=== PATIENT | female | born 1960 | race African-American/Black ===

== ENCOUNTER 2017-06-26 08:40 | Emergency (ER) | payer OTHER ==
[2017-06-26 08:47] VITALS: TEMP 97.4; BMI 23.5
[2017-06-26] MEDS ORDERED: MAG HYDROX/AL HYDROX/SIMETH 355 ML ORAL.SUSP PO ONE (09:10)
[2017-06-26] MEDS ORDERED: FAMOTIDINE 20 MG/50 ML IVPB 20 MG in PREMIX 50 IVPB ONE (09:10)
--- NOTE | 2017-06-26 09:10 | PDOC ---
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 Pain is left lower quadrant, left flank, and epigastric. She reports feeling chest pain today with some shortness of breath. Chest pain is worse on exertion and relieved with rest. She has associated nausea and constipation. She also has diffuse itching without rash. She has been having this pain for several weeks, but it became worse on 06/24, prompting her to seek evaluation at [facility]. There she was told that she has GERD, but she did not undergo any imaging at that time. She was discharged on pantoprazole, which she has been taking, but pain is worsening. Vital signs on arrival are notable for blood pressure 172/85. REVIEW OF SYSTEMS: GENERAL/CONSTITUTIONAL: No fever or chills. No weakness. No weight change. HEAD, EYES, EARS, NOSE AND THROAT: No change in vision. No ear pain or discharge. No sore throat. CARDIOVASCULAR: Chest pain x 2 days, worse on exertion and relieved with rest. RESPIRATORY: Dry cough, wheezing and shortness of breath, not relieved with use of albuterol nebulizers at home. Has been using home O2 that she had "left over " after being discharged on it after an admission for PNA several years ago. GASTROINTESTINAL: Left-sided abdominal, left flank, and epigastric pain, worsening over several weeks. Nausea, constipation. GENITOURINARY: No dysuria, frequency, or change in urination. MUSCULOSKELETAL: No joint or muscle swelling or pain. No neck or back pain. SKIN: No rash or easy bruising. NEUROLOGIC: No headache, vertigo, loss of consciousness, or loss of sensation. PSYCHIATRIC: No depression or anxiety. ENDOCRINE: No increased thirst. No abnormal weight change. HEMATOLOGIC/LYMPHATIC: No anemia, easy bleeding, or history of blood clots. ALLERGIC/IMMUNOLOGIC: No hives or skin allergy. No latex allergy. PHYSICAL EXAM: GENERAL: The patient is awake, alert, and fully oriented, in no acute distress. HEAD: Normal with no signs of trauma. ENT: Pupils equal, round and reactive to light, extraocular movements intact, sclera anicteric, conjunctiva clear. Neck supple. LUNGS: Clear to auscultation bilaterally. Normal excursion. No respiratory distress or use of accessory muscles. CV: RRR, S1/S2, no MRG. Cap refill < 2 sec. ABDOMEN: Soft, non-distended, non-tender. EXTREMITIES: Normal range of motion, no edema. NEUROLOGICAL: Normal speech, normal gait. CN II-XII grossly intact. PSYCH: Normal mood, normal affect. SKIN: Warm, dry, normal turgor, no rashes or lesions noted. Past History - Past Medical History Allergies/Adverse Reactions: Allergies Allergy/AdvReac Type Severity Reaction Status Date / Time No Known Allergies Allergy Verified 06/26/17 08:47 Home Medications: Ambulatory Orders Amlodipine Besylate 10 mg PO DAILY 04/09/16 Losartan Potassium [Cozaar -] 100 mg PO DAILY 04/09/16 Metoprolol Succinate [Toprol Xl] 100 mg PO BID 04/09/16 Albuterol Sulfate Inhaler - [Ventolin Hfa Inhaler -] 1 - 2 inh PO QID 06/26/17 Ciprofloxacin [Cipro -] 500 mg PO Q12H #14 tablet 06/26/17 Famotidine [Pepcid -] 20 mg PO DAILY #30 tablet 06/26/17 Metronidazole [Flagyl -] 500 mg PO Q8H #21 tablet 06/26/17 Prednisone [Deltasone -] 5 mg PO BID 06/26/17 COPD: Yes Diabetes: No HTN: Yes Psychiatric Problems: Yes Seizures: Yes (on dilantin, last seizure 2 yrs ago) - Reproductive History Therapeutic (s) & number: No - Immunization History Immunization Up to Date: Yes - Suicide/Smoking/Psychosocial Hx Smoking Status: Yes Smoking History: Former smoker Have you smoked in the past 12 months: Yes Number of Cigarettes Smoked Daily: 4 If you are a former smoker, when did you quit?: 2 months Information on smoking cessation initiated: No 'Breaking Loose' booklet given: 09/01/13 Hx Alcohol Use: No Drug/Substance Use Hx: No (past) Substance Use Type: Heroin Hx Substance Use Treatment: Yes *Physical Exam - Vital Signs Last Vital Signs Temp Pulse Resp BP Pulse Ox 97.4 F L 64 18 172/85 100 06/26/17 08:43 06/26/17 08:43 06/26/17 08:43 06/26/17 08:43 06/26/17 08:43 ED Treatment Course - LABORATORY CBC & Chemistry Diagram: 06/26/17 10:15 06/26/17 10:15 - RADIOLOGY Radiology Studies Ordered: Category Date Time Status CHEST PA & LAT [RAD] Stat Radiology 06/26/17 09:09 Ordered Medical Decision Making - Medical Decision Making 06/26/17 10:30 A/P: 56-year-old female with multiple complaints including abdominal pain, chest pain, shortness of breath. 1. EKG 2. Abdominal and cardiac labs 3. CTAP with PO/IV contrast 4. Trial of Pepcid and Maalox for burning epigastric pain/chest pain 5. Re-assess 06/26/17 11:37 Cr 1.3 K 5.2 UA with 14 WBCs 06/26/17 14:16 Patient reports pain/discomfort and itching are resolved. 06/26/17 15:19 CTAP reviewed: mild centrilobular emphysema, previously known to patient. Persistent dilatation of the common bile duct measuring 8mm, MRCP previously recommended. Questionable mild acute diverticulitis. Patient is feeling well and is eager to be discharged. Will treat ? diverticulitis with Cipro/Flagyl, ?UTI with Cipro, epigastric pain with Pepcid. Patient has appointment with GI on 07/06. Return precautions reviewed. *DC/Admit/Observation/Transfer Diagnosis at time of Disposition: Diverticulitis, Epigastric pain UTI (urinary tract infection) Qualifiers: Urinary tract infection type: acute cystitis Hematuria presence: without hematuria Qualified Code(s): N30.00 - Acute cystitis without hematuria - Discharge Dispostion Disposition: HOME Condition at time of disposition: Stable Admit: No - Prescriptions Prescriptions: Ciprofloxacin [Cipro -] 500 mg PO Q12H #14 tablet Famotidine [Pepcid -] 20 mg PO DAILY #30 tablet Metronidazole [Flagyl -] 500 mg PO Q8H #21 tablet - Referrals Referrals: Joe Gallagher MD [Primary Care Provider] - Jeromy Mendez MD [Staff Physician] - 07/06/17 - Patient Instructions Printed Discharge Instructions: DI for Diverticulitis Additional Instructions: -follow a clear liquid diet today -slowly advance to plain foods like bananas, rice, apples, toast -take ciprofloxacin/flagyl as prescribed - absolutely no alcohol or heavy exercise with these medications -take pepcid as prescribed for stomach discomfort -follow up with Dr. Mendez on 07/06 as scheduled -return here for any new or concerning symptoms, especially chest pain or shortness of breath - Post Discharge Activity
[2017-06-26] MEDS ORDERED: ONDANSETRON 4 MG/2 ML VIAL IVPUSH ONE (09:21)
[2017-06-26] MEDS ORDERED: FAMOTIDINE 20 MG/50 ML IVPB 20 MG/50 ML MG IVPB ONE (09:55)
[2017-06-26] MEDS ORDERED: MAG HYDROX/AL HYDROX/SIMETH 30 ML UNIT-DOSE CUP ONE (09:55)
[2017-06-26] MEDS ORDERED: ONDANSETRON 4 MG/2 ML VIAL ONE (09:55)
[2017-06-26 10:42] LABS: BASO % 0.6 % (0-2.0); EOS % 0.6 % (0-4.5); HEMATOCRIT 42.7 % (32.4-45.2); HEMOGLOBIN 13.8 GM/dL (10.7-15.3); LYMPH % 30.8 % (8-40); MCH 31.7 pg (25.7-33.7); MCHC 32.4 g/dl (32.0-36.0); MEAN CELL VOLUME 97.9 fl (80-96); MEAN PLT VOLUME 9.3 fl (7.5-11.1); MONO % 4.3 % (3.8-10.2); NEUT % 63.7 % (42.8-82.8); RBC 4.37 M/mm3 (3.60-5.2); RDW 12.5 % (11.6-15.6); WHITE BLOOD COUNT 7.2 K/mm3 (4.0-10.0)
[2017-06-26 10:45] LABS: URINE APPEARANCE SLCLOUDY; URINE BILIRUBIN NEGATIVE (NEGATIVE); URINE BLOOD NEGATIVE (NEGATIVE); URINE COLOR YELLOW; URINE GLUCOSE (UA) NEGATIVE (NEGATIVE); URINE KETONE TRACE (NEGATIVE); URINE LEUK ESTERASE TRACE (NEGATIVE); URINE NITRITE NEGATIVE (NEGATIVE); URINE PROTEIN NEGATIVE (NEGATIVE)
[2017-06-26 10:54] LABS: EPI CELLS FEW /HPF (FEW); URINE BACTERIA RARE /hpf (NONE SEEN); URINE MUCUS RARE
[2017-06-26 10:55] LABS: INR 1.17 (0.82-1.09); PROTHROMBIN TIME (PATIENT) 13.2 SEC (9.98-11.88)
[2017-06-26 11:01] LABS: ALBUMIN 4.6 g/dl (3.4-5.0); ANION GAP 8 (8-16); BILIRUBIN,TOTAL 0.6 mg/dL (0.2-1.0); BLOOD UREA NITROGEN 18 mg/dL (7-18); CALCIUM 9.4 mg/dL (8.5-10.1); CHLORIDE 105 mmol/L (98-107); CO2 25 mmol/L (21-32); CREATININE 1.3 mg/dL (0.55-1.02); GLUCOSE,RANDOM 94 mg/dL (74-106); LIPASE 146 U/L (73-393); POTASSIUM 5.2 mmol/L (3.5-5.1); SGOT/AST 42 U/L (15-37); SGPT/ALT 35 U/L (12-78); SODIUM 138 mmol/L (136-145); TOT PROT 8.3 g/dl (6.4-8.2)
[2017-06-26 11:02] LABS: ALK PHOS 102 U/L (45-117)
[2017-06-26] MEDS ORDERED: ALBUTEROL SO4 2.5/IPRATROPIUM 0.5 INH SOL 3 ML VIAL.NEB. NEB ONE ×2 (11:36→12:13)
[2017-06-26] MEDS ORDERED: SODIUM CHLORIDE 1,000 ML IV SCH (11:45)
[2017-06-26] MEDS: ALBUTEROL SO4 0.083% IH SOL 2.5 MG/3 ML VIAL.NEB. NEB SCH ×2 (12:10→12:39)
[2017-06-26] MEDS ORDERED: ALBUTEROL SO4 0.083% IH SOL 2.5 MG/3 ML VIAL.NEB. NEB ONE (12:36)
[2017-06-26] MEDS ORDERED: CIPROFLOXACIN 500 MG TABLET (RESTRICTED TO ID) PO ONE (15:18)
[2017-06-26] MEDS ORDERED: metroNIDAZOLE 250 MG TABLET PO ONE (15:19)
[2017-06-26] MEDS ORDERED: LEVOFLOXACIN 750 MG TABLET PO ONE (15:22)
[2017-06-26] MEDS ORDERED: metroNIDAZOLE 250 MG TABLET ONE (15:24)
[2017-06-26] MEDS ORDERED: LEVOFLOXACIN 500 MG TABLET (FP) ONE (15:24)
[2017-06-26] MEDS ORDERED: LEVOFLOXACIN 250 MG TABLET (FP) ONE (15:25)
[2017-06-26 15:34] VITALS: BP 141/88; PULSE 76
== END 2017-06-26 15:34 | disposition home or self-care (01) ==
LOC: JER 08:40
PROC: 3E0337Z Introduction of Electrolytic and Water Balance Substance into Peripheral Vein, Percutaneous Approach (ICD-10-PCS; principal; 2017-06-26)
PROC: 3E0F7GC Introduction of Other Therapeutic Substance into Respiratory Tract, Via Natural or Artificial Opening (ICD-10-PCS; 2017-06-26)
PROC: 3E0F7GC Introduction of Other Therapeutic Substance into Respiratory Tract, Via Natural or Artificial Opening (ICD-10-PCS; 2017-06-26)
DX: K57.92 Diverticulitis of intestine, part unspecified, without perforation or abscess without bleeding (principal); N30.00 Acute cystitis without hematuria; I10 Essential (primary) hypertension; J44.9 Chronic obstructive pulmonary disease, unspecified; F11.20 Opioid dependence, uncomplicated; Z86.69 Personal history of other diseases of the nervous system and sense organs; Z87.891 Personal history of nicotine dependence
CPT/HCPCS: 36415; 71046-TC; 74177-TC; 80053; 81003; 81015; 82550; 82553; 83690; 84484; 85025; 85610; 94640; 96361; 96365; 96375; 99283-25

== ENCOUNTER 2017-06-27 13:42 | Observation (INO) | payer OTHER ==
[2017-06-27 14:21] VITALS: BMI 24.3
[2017-06-27] MEDS ORDERED: ASPIRIN 81 MG CHEWABLE TABLETS PO ONE (14:26)
--- NOTE | 2017-06-27 14:42 | PDOC ---
History of Present Illness - General Chief Complaint: Chest Pain Stated Complaint: CHEST PAIN Time Seen by Provider: 06/27/17 14:26 History Source: Patient Exam Limitations: No Limitations - History of Present Illness Travel History: No Initial Comments: 06/27/17 14:40 56 yr female seen in ER yesterday returns today with abd pain and decreased appetite, chest pain during the night with chills and sweats. Pt states she was discharged from ER yesterday and has been unable to eat or drink without abdominal discomfort, "bloating" states pt. Neg nvd, positive constipation, has lower left sided abd pain. PMHX: IVDA on methadone 30mg daily last dose today COPD , GERD, HTN PMD: Dr.James Gallagher 06/27/17 16:53 06/27/17 16:56 Timing/Duration: reports: constant Past History - Past Medical History Allergies/Adverse Reactions: Allergies Allergy/AdvReac Type Severity Reaction Status Date / Time No Known Allergies Allergy Verified 06/27/17 14:01 Home Medications: Ambulatory Orders Amlodipine Besylate 10 mg PO DAILY 04/09/16 Losartan Potassium [Cozaar -] 100 mg PO DAILY 04/09/16 Metoprolol Succinate [Toprol Xl] 100 mg PO BID 04/09/16 Albuterol Sulfate Inhaler - [Ventolin Hfa Inhaler -] 1 - 2 inh PO QID 06/26/17 Ciprofloxacin [Cipro -] 500 mg PO Q12H #14 tablet 06/26/17 Famotidine [Pepcid -] 20 mg PO DAILY #30 tablet 06/26/17 Metronidazole [Flagyl -] 500 mg PO Q8H #21 tablet 06/26/17 Prednisone [Deltasone -] 5 mg PO BID 06/26/17 COPD: Yes Diabetes: No HTN: Yes Psychiatric Problems: Yes Seizures: Yes (on dilantin, last seizure 2 yrs ago) - Reproductive History Therapeutic (s) & number: No - Immunization History Immunization Up to Date: Yes - Suicide/Smoking/Psychosocial Hx Smoking Status: Yes Smoking History: Former smoker Have you smoked in the past 12 months: Yes Number of Cigarettes Smoked Daily: 4 If you are a former smoker, when did you quit?: 2 months Information on smoking cessation initiated: No 'Breaking Loose' booklet given: 09/01/13 Hx Alcohol Use: No Drug/Substance Use Hx: No (past) Substance Use Type: Heroin Hx Substance Use Treatment: Yes Abd/GI Specific PMHX - Complaint Specific PMHX Colitis: No Diverticulitis: Yes GERD: Yes Hepatitis: No Irritable Bowel Synd (IBS): No Pancreatitis: No GI Ulcer Disease: No *Physical Exam - Vital Signs Last Vital Signs Temp Pulse Resp BP Pulse Ox 98.2 F 87 16 185/78 100 06/27/17 13:57 06/27/17 13:57 06/27/17 13:57 06/27/17 13:57 06/27/17 13:57 - Physical Exam General Appearance: Yes: Nourished, Appropriately Dressed HEENT: positive: EOMI, JULES, Normal ENT Inspection, TMs Normal, Pharynx Normal Neck: positive: Supple. negative: Tender, Lymphadenopathy (R), Lymphadenopathy (L) Respiratory/Chest: positive: Lungs Clear, Normal Breath Sounds Cardiovascular: positive: Regular Rhythm, Regular Rate, S1, S2. negative: Murmur, Bradycardia, Gallop/S3, Gallop/S4 Gastrointestinal/Abdominal: positive: Normal Bowel Sounds, Soft. negative: Tender Musculoskeletal: positive: Normal Inspection Extremity: positive: Normal Capillary Refill, Normal Inspection, Normal Range of Motion. negative: Tender Integumentary: positive: Normal Color, Dry, Warm Neurologic: positive: nutrition representative II-XII NML intact, Fully Oriented, Alert, Normal Mood/ Affect, Normal Response, Motor Strength 5/5 Heart Score/ECG Review - History History: Slightly suspicious - Risk Factors Risk Factors Heart Score: Yes Hx Hypertension, Yes Smoking History Based on the list above the patient has:: 1-2 risk factors - ECG Intrepretation Rhythm: Regular Rhythm - Wolbach Wolbach: Normal ED Treatment Course - LABORATORY CBC & Chemistry Diagram: 06/27/17 15:10 06/27/17 15:10 - RADIOLOGY Radiology Studies Ordered: Category Date Time Status CHEST PA & LAT [RAD] Stat Radiology 06/27/17 14:26 Ordered Medical Decision Making - Medical Decision Making 06/27/17 14:43 cc: abd pain with decreased appetite, decreased po intake, chest pain last night during the night with diaphoresis seen in this ER yesterday diagnosed with diverticulitus placed on flagyl and cipro pt not feeling better has intermittent chest and abd pain no fever will re-check labs, IVF pepcid, maalox possible OBS for chest pain, failure on oral antibitoics, continuing abd pain case discussed with 06/27/17 16:25 pt is taking small sips of water stating after she drinks she feels "full and has shaking in her knees" will get xray to r/o SBO pt to go to US for pelvic ultrasound labs resulted 06/27/17 16:56 06/27/17 17:07 call to 06/27/17 17:15 discussed with and agrees to admit for diverticulitus, IVAB NPO *DC/Admit/Observation/Transfer Diagnosis at time of Disposition: Diverticulitis Abdominal pain Qualifiers: Abdominal location: left lower quadrant Qualified Code(s): R10.32 - Left lower quadrant pain - Discharge Dispostion Condition at time of disposition: Fair Admit: Yes - Referrals - Patient Instructions - Post Discharge Activity
[2017-06-27] MEDS ORDERED: MAG HYDROX/AL HYDROX/SIMETH 30 ML UNIT-DOSE CUP PO ONE (14:44)
[2017-06-27] MEDS ORDERED: FAMOTIDINE 20 MG/50 ML IVPB 20 MG/50 ML MG IVPB ONE ×2 (14:55→23:23)
[2017-06-27] MEDS ORDERED: MAG HYDROX/AL HYDROX/SIMETH 30 ML UNIT-DOSE CUP ONE (14:55)
--- NOTE | 2017-06-27 15:01 | PDOC ---
*Physical Exam - Vital Signs Last Vital Signs Temp Pulse Resp BP Pulse Ox 98.2 F 87 16 185/78 100 06/27/17 13:57 06/27/17 13:57 06/27/17 13:57 06/27/17 13:57 06/27/17 13:57 Medical Decision Making - Medical Decision Making 06/27/17 15:00 Pt seen by the Advanced Practice Provider under my direct supervision Ancillary studies reviewed I agree with plan as outlined by the Advanced Practice Provider BILL Clark *DC/Admit/Observation/Transfer - Referrals Referrals: Joe Gallagher MD [Primary Care Provider] - - Patient Instructions - Post Discharge Activity
[2017-06-27] MEDS ORDERED: PANTOPRAZOLE 20 MG TABLET (FP) PO ONE (15:13)
[2017-06-27] MEDS: SODIUM CHLORIDE 1,000 ML IV STA ×2 (15:17→17:16)
[2017-06-27 15:19] LABS: BASO % 0.8 % (0-2.0); EOS % 0.8 % (0-4.5); HEMATOCRIT 37.4 % (32.4-45.2); HEMOGLOBIN 12.5 GM/dL (10.7-15.3); LYMPH % 35.3 % (8-40); MCH 32.3 pg (25.7-33.7); MCHC 33.3 g/dl (32.0-36.0); MEAN CELL VOLUME 96.9 fl (80-96); MEAN PLT VOLUME 7.4 fl (7.5-11.1); MONO % 7.7 % (3.8-10.2); NEUT % 55.4 % (42.8-82.8); PLATELET COUNT 217 K/MM3 (134-434); RBC 3.86 M/mm3 (3.60-5.2); RDW 12.4 % (11.6-15.6); WHITE BLOOD COUNT 4.6 K/mm3 (4.0-10.0)
[2017-06-27] MEDS ORDERED: PANTOPRAZOLE 40 MG TABLET (FP) ONE (15:21)
[2017-06-27 15:37] LABS: URINE APPEARANCE CLEAR; URINE BILIRUBIN NEGATIVE (NEGATIVE); URINE BLOOD NEGATIVE (NEGATIVE); URINE COLOR LTYELLOW; URINE GLUCOSE (UA) NEGATIVE (NEGATIVE); URINE KETONE NEGATIVE (NEGATIVE); URINE LEUK ESTERASE TRACE (NEGATIVE); URINE NITRITE NEGATIVE (NEGATIVE); URINE PROTEIN NEGATIVE (NEGATIVE); URINE UROBILINOGEN NEGATIVE mg/dL (0.2-1.0)
[2017-06-27 15:54] LABS: ALBUMIN 3.9 g/dl (3.4-5.0); ANION GAP 9 (8-16); BLOOD UREA NITROGEN 12 mg/dL (7-18); CALCIUM 9.3 mg/dL (8.5-10.1); CHLORIDE 103 mmol/L (98-107); CO2 28 mmol/L (21-32); CREATININE 1.3 mg/dL (0.55-1.02); GLUCOSE,RANDOM 113 mg/dL (74-106); MAGNESIUM 2.1 mg/dL (1.8-2.4); POTASSIUM 4.1 mmol/L (3.5-5.1); SGOT/AST 21 U/L (15-37); SGPT/ALT 30 U/L (12-78); SODIUM 140 mmol/L (136-145); TOT PROT 7.3 g/dl (6.4-8.2)
[2017-06-27 15:57] LABS: ALK PHOS 88 U/L (45-117); BILIRUBIN,TOTAL 0.3 mg/dL (0.2-1.0)
[2017-06-27] MEDS ORDERED: CEFTRIAXONE 1 GM in DEXTROSE 5%-WATER - 50 ML IVPB ONE (17:12)
[2017-06-27] MEDS ORDERED: METRONIDAZOLE 500 MG PREMIXED 500 MG/100 ML MG IVPB ONE ×2 (17:13→18:50)
[2017-06-27 17:33] LABS: EPI CELLS RARE /HPF (FEW); URINE MUCUS RARE
[2017-06-27] MEDS ORDERED: CEFTRIAXONE 1 GM/50 ML BAG ONE ×2 (18:50→19:21)
[2017-06-27] MEDS ORDERED: FAMOTIDINE IV 20 MG/12 ML VIAL IVPUSH SCH (22:00)
[2017-06-27] MEDS ORDERED: SODIUM CHLORIDE 0.9% 1000 ML INFUS.BAG IV ONE (23:21)
[2017-06-28] MEDS ORDERED: ALBUTEROL SO4 2.5/IPRATROPIUM 0.5 INH SOL 3 ML VIAL.NEB. NEB PRN (01:46)
--- NOTE | 2017-06-28 01:59 | PN ---
Progress Note, Physician - Current Medication List Current Medications: Active Medications Albuterol/Ipratropium (Duoneb -) 1 amp NEB Q6H PRN PRN Reason: SHORTNESS OF BREATH Amlodipine Besylate (Norvasc -) 10 mg PO DAILY [facility] Heparin Sodium (Porcine) (Heparin -) 5,000 unit SQ BID [facility] Famotidine (Pepcid 20 Mg/12 Ml Push) 20 mg in 12 mls @ 144 mls/hr IVPUSH BID [facility] Last Admin: 06/27/17 23:27 Dose: 144 mls/hr Dextrose/Sodium Chloride (D5-1/2ns -) 1,000 mls @ 75 mls/hr IV ASDIR [facility] Metronidazole (Flagyl 500mg Premixed Ivpb -) 500 mg in 100 mls @ 100 mls/hr IVPB Q8H-IV [facility] Levofloxacin (Levaquin 500 Mg Premixed Ivpb -) 500 mg in 100 mls @ 100 mls/hr IVPB DAILY [facility] Losartan Potassium (Cozaar -) 100 mg PO DAILY [facility] Metoprolol Succinate (Toprol Xl -) 100 mg PO BID [facility] Non-Formulary Medication (Famotidine [Pepcid -]) 20 mg PO DAILY [facility] - Objective Vital Signs: Vital Signs Temperature 98.2 F 06/27/17 13:57 Pulse Rate 87 06/27/17 13:57 Respiratory Rate 16 06/27/17 13:57 Blood Pressure 185/78 06/27/17 13:57 O2 Sat by Pulse Oximetry (%) 100 06/27/17 13:57 Labs: CBC, BMP 06/27/17 15:10 06/27/17 15:10
[2017-06-28] MEDS ORDERED: METRONIDAZOLE 500 MG PREMIXED 500 MG/100 ML MG IVPB ONE (02:45)
[2017-06-28] MEDS: DEXTROSE 5%-0.45% SALINE 1,000 ML IV SCH ×2 (02:49→18:49)
[2017-06-28] MEDS: METRONIDAZOLE 500 MG PREMIXED 500 MG/100 ML MG IVPB SCH ×3 (02:49→18:52)
[2017-06-28 08:30] LABS: BASO % 0.5 % (0-2.0); EOS % 0.5 % (0-4.5); HEMATOCRIT 37.2 % (32.4-45.2); HEMOGLOBIN 12.1 GM/dL (10.7-15.3); LYMPH % 22.1 % (8-40); MCH 31.7 pg (25.7-33.7); MCHC 32.6 g/dl (32.0-36.0); MEAN CELL VOLUME 97.2 fl (80-96); MEAN PLT VOLUME 7.3 fl (7.5-11.1); MONO % 7.1 % (3.8-10.2); NEUT % 69.8 % (42.8-82.8); PLATELET COUNT 190 K/MM3 (134-434); RBC 3.83 M/mm3 (3.60-5.2); RDW 12.4 % (11.6-15.6); WHITE BLOOD COUNT 3.7 K/mm3 (4.0-10.0)
[2017-06-28 08:35] LABS: CHLORIDE 106 mmol/L (98-107); POTASSIUM 3.5 mmol/L (3.5-5.1); SODIUM 140 mmol/L (136-145)
[2017-06-28 08:43] LABS: ALBUMIN 3.7 g/dl (3.4-5.0); ALK PHOS 81 U/L (45-117); ANION GAP 7 (8-16); BILIRUBIN,TOTAL 0.5 mg/dL (0.2-1.0); BLOOD UREA NITROGEN 7 mg/dL (7-18); CALCIUM 8.4 mg/dL (8.5-10.1); CO2 27 mmol/L (21-32); CREATININE 0.9 mg/dL (0.55-1.02); GLUCOSE,RANDOM 106 mg/dL (74-106); SGOT/AST 22 U/L (15-37); SGPT/ALT 28 U/L (12-78); TOT PROT 6.9 g/dl (6.4-8.2)
[2017-06-28] MEDS ORDERED: amLODIPine BESYLATE 10 MG TABLET (FP) PO SCH (10:00)
[2017-06-28] MEDS ORDERED: LOSARTAN POTASSIUM 100 MG TABLET PO SCH (10:00)
[2017-06-28] MEDS ORDERED: LEVOFLOXACIN 500 MG IVPB 500 MG/100 ML BAG IVPB SCH (10:00)
[2017-06-28] MEDS ORDERED: RANITIDINE HCL 150 MG TABLET (FP) PO SCH (10:00)
[2017-06-28] MEDS: HEPARIN NA (PORCINE) 5,000 UNITS/ML 1ML VIAL SQ SCH ×2 (11:10→21:00)
[2017-06-28] MEDS: METOPROLOL SUCCINATE 100 MG TAB.SR.24H (FP) PO SCH ×2 (11:11→21:02)
[2017-06-28] MEDS ORDERED: METHADONE HCL 40 MG DISPERSABLE TABLET ONE (11:59)
[2017-06-28] MEDS ORDERED: METHADONE HCL 40 MG DISPERSABLE TABLET PO SCH (12:00)
[2017-06-28] MEDS ORDERED: PNEUMOC 13-VAL CONJ-DIP CRM/PF 0.5 ML DISP.SYRIN IM ONE (14:41)
--- NOTE | 2017-06-28 15:13 | EKG ---
Test Reason : Blood Pressure : / mmHG Vent. Rate : 071 BPM Atrial Rate : 071 BPM P-R Int : 148 ms QRS Dur : 086 ms QT Int : 390 ms P-R-T Axes : 065 061 062 degrees QTc Int : 423 ms NORMAL SINUS RHYTHM VOLTAGE CRITERIA FOR LEFT VENTRICULAR HYPERTROPHY ABNORMAL ECG WHEN COMPARED WITH ECG OF 01-SEP-2013 13:24, VENT. RATE HAS DECREASED BY 37 BPM QT HAS SHORTENED Confirmed by Mukesh Leahy MD ([id number]) on 06/28/2017 3:13:08 PM Referred By: Confirmed By:Mukesh Leahy MD
--- NOTE | 2017-06-28 16:11 | HP ---
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 Cardiovascular: Yes: HTN Pulmonary: Yes: Pneumonia - Past Surgical History Past Surgical History: Yes: None - Smoking History Smoking history: Former smoker Have you smoked in the past 12 months: Yes Aproximately how many cigarettes per day: 4 If you are a former smoker, when did you quit?: 2 months - Alcohol/Substance Use Hx Alcohol Use: No History of Substance Use: reports: Heroin Home Medications - Allergies Allergies/Adverse Reactions: Allergies Allergy/AdvReac Type Severity Reaction Status Date / Time No Known Allergies Allergy Verified 06/27/17 14:01 - Home Medications Home Medications: Ambulatory Orders Amlodipine Besylate 10 mg PO DAILY 04/09/16 Losartan Potassium [Cozaar -] 100 mg PO DAILY 04/09/16 Albuterol Sulfate Inhaler - [Ventolin Hfa Inhaler -] 1 - 2 inh PO BID 06/26/17 Famotidine [Pepcid -] 20 mg PO DAILY #30 tablet 06/26/17 Prednisone [Deltasone -] 5 mg PO BID 06/26/17 Metoprolol Tartrate 100 mg PO BID 06/28/17 Family Disease History - Family Disease History Family Disease History: Diabetes: Grandparent (maternal GM d. DM, age 68), Mother (d. DM, age 56), Sister (d. DM, HIV, meningitis, age 42), Heart Disease: Grandparent, Mother, CA: Father (d. colon ca?, age unknown) Physical Examination Vital Signs: Vital Signs Temperature 98.1 F 06/28/17 09:00 Pulse Rate 59 L 06/28/17 14:31 Respiratory Rate 18 06/28/17 15:51 Blood Pressure 160/123 06/28/17 14:31 O2 Sat by Pulse Oximetry (%) 98 06/28/17 15:51 Labs: CBC, BMP 06/28/17 07:30 06/28/17 07:30
[2017-06-28] MEDS ORDERED: FLU VACCINE QUAD 60 MCG/0.5 ML (MDV 17-18) IM ONE (16:15)
--- NOTE | 2017-06-28 17:25 | CON.GI ---
Consult Consult Specialty:: GI Referred by:: Dr Bates/ Joe Gallagher - History of Present Illness History of Present Illness: 56 y/o F was asked be sen marjan of diverticulitis. She presented to the emergency room because of chest pain and shortness of breath. She is takes methadone daily and admits to having abdominal pain, bloating and constipation. 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 Cardio/Vascular: Yes: HTN Pulmonary: Yes: Pneumonia Additional Medical History: past Heroin abuse - Past Surgical History Past Surgical History: Yes: None - Alcohol/Substance Use Hx Alcohol Use: No History of Substance Use: reports: Heroin - Smoking History Smoking history: Former smoker Have you smoked in the past 12 months: Yes Aproximately how many cigarettes per day: 4 If you are a former smoker, when did you quit?: 2 months - Social History Usual Living Arrangement: With Child (son) Home Medications - Allergies Allergies/Adverse Reactions: Allergies Allergy/AdvReac Type Severity Reaction Status Date / Time No Known Allergies Allergy Verified 06/27/17 14:01 - Home Medications Home Medications: Ambulatory Orders Amlodipine Besylate 10 mg PO DAILY 04/09/16 Losartan Potassium [Cozaar -] 100 mg PO DAILY 04/09/16 Albuterol Sulfate Inhaler - [Ventolin Hfa Inhaler -] 1 - 2 inh PO BID 06/26/17 Famotidine [Pepcid -] 20 mg PO DAILY #30 tablet 06/26/17 Prednisone [Deltasone -] 5 mg PO BID 06/26/17 Metoprolol Tartrate 100 mg PO BID 06/28/17 Family Disease History - Family Disease History Family History: Denies (cololon and gastric cancer) Family Disease History: Diabetes: Grandparent (maternal GM d. DM, age 68), Mother (d. DM, age 56), Sister (d. DM, HIV, meningitis, age 42), Heart Disease: Grandparent, Mother, CA: Father (d. colon ca?, age unknown) Review of Systems - Review of Systems Constitutional: denies: Fever Eyes: denies: Blind Spots HENT: denies: Difficult Swallowing, Throat Pain Cardiovascular: denies: Chest Pain Respiratory: denies: Cough Gastrointestinal: denies: Abdominal Pain, Bloating, Constipation, Diarrhea, Dysphagia, Indigestion, Melena, Nausea, Vomiting Physical Exam-GI Vital Signs: Vital Signs Temperature 98.1 F 06/28/17 09:00 Pulse Rate 59 L 06/28/17 14:31 Respiratory Rate 18 06/28/17 15:51 Blood Pressure 160/123 06/28/17 14:31 O2 Sat by Pulse Oximetry (%) 98 06/28/17 15:51 Constitutional: Yes: Well Nourished Eyes: Yes: Conjunctiva Clear HENT: Yes: Atraumatic Neck: Yes: Supple Cardiovascular: Yes: Regular Rate and Rhythm Respiratory: Yes: CTA Bilaterally ...Palpate: Yes: Soft. No: Firm/Rigid, Guarding, Hepatomegaly, Mass, Pulsatile Mass, Splenomegaly, Tenderness Labs: CBC, BMP 06/28/17 07:30 06/28/17 07:30 Problem List - Problems (1) Therapeutic opioid-induced constipation (OIC) Assessment/Plan: R> Movantik 25mg daily as an outpatient , she was instructed to follow-up as an outpatient Relistor 12.5 mg daily Code(s): K59.03 - DRUG INDUCED CONSTIPATION; T40.2X5A - ADVERSE EFFECT OF OTHER OPIOIDS, INITIAL ENCOUNTER
[2017-06-28] MEDS ORDERED: Methylnaltrexone Bromide 12 MG/0.6 ML KIT SQ SCH (17:45)
[2017-06-28] MEDS ORDERED: amLODIPine BESYLATE 5 MG TABLET (FP) PO ONE (20:45)
--- NOTE | 2017-06-28 23:38 | PN ---
Progress Note, Physician - Current Medication List Current Medications: Active Medications Albuterol/Ipratropium (Duoneb -) 1 amp NEB Q6H PRN PRN Reason: SHORTNESS OF BREATH Amlodipine Besylate (Norvasc -) 10 mg PO DAILY [facility] Last Admin: 06/28/17 11:10 Dose: Not Given Heparin Sodium (Porcine) (Heparin -) 5,000 unit SQ BID [facility] Last Admin: 06/28/17 21:00 Dose: 5,000 unit Dextrose/Sodium Chloride (D5-1/2ns -) 1,000 mls @ 75 mls/hr IV ASDIR [facility] Last Admin: 06/28/17 18:49 Dose: 75 mls/hr Metronidazole (Flagyl 500mg Premixed Ivpb -) 500 mg in 100 mls @ 100 mls/hr IVPB Q8H-IV [facility] Last Admin: 06/28/17 18:52 Dose: 100 mls/hr Levofloxacin (Levaquin 500 Mg Premixed Ivpb -) 500 mg in 100 mls @ 100 mls/hr IVPB DAILY [facility] Last Admin: 06/28/17 11:10 Dose: 100 mls/hr Losartan Potassium (Losartan Potassium) 100 mg PO DAILY [facility] Last Admin: 06/28/17 11:10 Dose: Not Given Methadone HCl (Dolophine -) 40 mg PO DAILY@0600 [facility] Last Admin: 06/28/17 12:01 Dose: 40 mg Methylnaltrexone Mcdonald (Relistor -) 12 mg SQ Q2D@1000 [facility] Last Admin: 06/28/17 20:54 Dose: 12 mg Metoprolol Succinate (Toprol Xl -) 100 mg PO BID [facility] Last Admin: 06/28/17 21:02 Dose: 100 mg Ranitidine HCl (Zantac -) 150 mg PO DAILY [facility] Last Admin: 06/28/17 11:11 Dose: 150 mg - Objective Vital Signs: Vital Signs Temperature 97.3 F L 06/28/17 20:19 Pulse Rate 59 L 06/28/17 20:19 Respiratory Rate 20 06/28/17 20:20 Blood Pressure 165/91 06/28/17 20:19 O2 Sat by Pulse Oximetry (%) 100 06/28/17 20:20 Labs: CBC, BMP 06/28/17 07:30 06/28/17 07:30
[2017-06-29] MEDS: METRONIDAZOLE 500 MG PREMIXED 500 MG/100 ML MG IVPB SCH (02:11)
[2017-06-29] MEDS: DEXTROSE 5%-0.45% SALINE 1,000 ML IV SCH (02:12)
[2017-06-29 06:06] VITALS: BP 170/79; PULSE 80; TEMP 98.2
== END 2017-06-29 07:14 | disposition home or self-care (01) ==
LOC: JER 13:42 → JERBED 17:14 → UNDOADMOB 17:14 → INTOOBSV 17:14 → J7W 06-28 00:37 → JERBED 06-28 14:55 → J7W 06-28 14:55
PROVIDERS: ADMIT Internal Medicine; ATTEND Internal Medicine
PROC: 3E03329 Introduction of Other Anti-infective into Peripheral Vein, Percutaneous Approach (ICD-10-PCS; principal; 2017-06-28)
PROC: 3E0337Z Introduction of Electrolytic and Water Balance Substance into Peripheral Vein, Percutaneous Approach (ICD-10-PCS; 2017-06-28)
PROC: 3E013GC Introduction of Other Therapeutic Substance into Subcutaneous Tissue, Percutaneous Approach (ICD-10-PCS; 2017-06-28)
DX: R07.9 Chest pain, unspecified (principal); K57.92 Diverticulitis of intestine, part unspecified, without perforation or abscess without bleeding; R10.32 Left lower quadrant pain; K59.03 Drug induced constipation; T40.2X5A Adverse effect of other opioids, initial encounter
CPT/HCPCS: 36415; 74019-TC; 76830-TC; 80053; 81003; 81015; 82550; 82553; 83735; 84484; 85025; 87491; 87591; 90688; 93005; 93010; 96361; 96365; 96375; 99285-25; G0378; J1644

== ENCOUNTER 2017-06-29 16:18 | Inpatient (IN) | payer OTHER ==
--- NOTE | 2017-06-29 16:33 | PDOC ---
Rapid Medical Evaluation Medical Evaluation: Allergies Allergy/AdvReac Type Severity Reaction Status Date / Time No Known Allergies Allergy Verified 06/27/17 14:01 Vital Signs Temp Pulse Resp BP Pulse Ox 98.2 F 61 20 131/79 100 06/29/17 16:27 06/29/17 16:27 06/29/17 16:27 06/29/17 16:27 06/29/17 16:27 06/29/17 16:30 I have performed a brief in-person evaluation of this patient. 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
[2017-06-29 17:13] LABS: BASO % 0.7 % (0-2.0); EOS % 1.5 % (0-4.5); HEMOGLOBIN 14.1 GM/dL (10.7-15.3); LYMPH % 28.7 % (8-40); MCH 32.3 pg (25.7-33.7); MCHC 33.5 g/dl (32.0-36.0); MEAN CELL VOLUME 96.6 fl (80-96); MEAN PLT VOLUME 7.6 fl (7.5-11.1); MONO % 7.8 % (3.8-10.2); NEUT % 61.3 % (42.8-82.8); PLATELET COUNT 246 K/MM3 (134-434); RBC 4.35 M/mm3 (3.60-5.2); RDW 12.5 % (11.6-15.6); WHITE BLOOD COUNT 4.1 K/mm3 (4.0-10.0)
[2017-06-29 17:27] LABS: INR 1.27 (0.82-1.09); PROTHROMBIN TIME (PATIENT) 14.4 SEC (9.98-11.88)
[2017-06-29 17:47] LABS: ALBUMIN 4.3 g/dl (3.4-5.0); ALK PHOS 94 U/L (45-117); ANION GAP 7 (8-16); BILIRUBIN,TOTAL 0.5 mg/dL (0.2-1.0); BLOOD UREA NITROGEN 9 mg/dL (7-18); CALCIUM 9.7 mg/dL (8.5-10.1); CHLORIDE 104 mmol/L (98-107); CO2 28 mmol/L (21-32); CREATININE 1.3 mg/dL (0.55-1.02); GLUCOSE,RANDOM 97 mg/dL (74-106); POTASSIUM 3.8 mmol/L (3.5-5.1); SGOT/AST 34 U/L (15-37); SGPT/ALT 36 U/L (12-78); SODIUM 139 mmol/L (136-145); TOT PROT 7.7 g/dl (6.4-8.2)
[2017-06-29 17:50] LABS: URINE APPEARANCE SLCLOUDY; URINE BILIRUBIN NEGATIVE (NEGATIVE); URINE BLOOD NEGATIVE (NEGATIVE); URINE COLOR DKYELLOW; URINE GLUCOSE (UA) NEGATIVE (NEGATIVE); URINE KETONE 1+ (NEGATIVE); URINE NITRITE NEGATIVE (NEGATIVE); URINE PROTEIN NEGATIVE (NEGATIVE)
[2017-06-29 17:54] LABS: URINE LEUK ESTERASE 1+ (NEGATIVE)
--- NOTE | 2017-06-29 18:02 | PDOC ---
History of Present Illness - General Chief Complaint: Pain Stated Complaint: ER REVIST Time Seen by Provider: 06/29/17 16:34 History Source: Patient Exam Limitations: No Limitations - History of Present Illness Initial Comments: 06/29/17 18:02 Patient is a 56 y/o female was discharged this am from the hospital diagnosed with diverticulitis. Was discharged on flagyl and levaquin. Patient was able to take her medication this am after discharge, also received her methodone from the clinic today. Upon arriving home, felt well and was able to eat a yogurt. Within an hour, patient with generalized lower abdominal pain worse on the left. Patient reports that she feels short of breath with the pain. Denies any chest pain. No fever, chills or sweats. 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 No weakness. No weight change.] HEAD, EYES, EARS, NOSE AND THROAT: [No change in vision. No ear pain or discharge. No sore throat. ] CARDIOVASCULAR: [No chest pain or shortness of breath.] RESPIRATORY: [No cough, wheezing, or hemoptysis.] GASTROINTESTINAL: [No nausea, vomiting, no diarrhea or constipation. No rectal bleeding. Lower abdominal pain worse on the left.] GENITOURINARY: [No dysuria, frequency, or change in urination.] MUSCULOSKELETAL: [No joint or muscle swelling or pain. No neck or back pain.] SKIN AND BREASTS: [No rash or easy bruising.] NEUROLOGIC: [No headache, vertigo, loss of consciousness, or loss of sensation.] PSYCHIATRIC: [No depression or anxiety.] ENDOCRINE: [No increased thirst. No abnormal weight change.] HEMATOLOGIC/LYMPHATIC: [No anemia, easy bleeding, or history of blood clots.] ALLERGIC/IMMUNOLOGIC: [No hives or skin allergy. No latex allergy.] Physical Exam: GENERAL: [The patient is awake, alert, and fully oriented, in no acute distress. ] HEAD: [Normal with no signs of trauma.] EYES: [Pupils equal, round and reactive to light, extraocular movements intact, sclera anicteric, conjunctiva clear.] ENT: [Ears normal, nares patent, oropharynx clear without exudates. Moist mucous membranes. No uvula deviation] NECK: [Normal range of motion, supple without lymphadenopathy, JVD, or masses.] LUNGS: [Breath sounds equal, clear to auscultation bilaterally. No wheezes, and no crackles.] HEART: [Regular rate and rhythm, normal S1 and S2 without murmur, rub or gallop. ] ABDOMEN: [Soft, tender to generalized lower abdomen more on the left, normoactive bowel sounds. No guarding, no rebound. No masses. No bruising or abrasions] RECTAL : [Guaiac negative, normal rectal tone.] MUSCULOSKELETAL: [Normal range of motion, no edema. No clubbing or cyanosis. No cords, erythema, or tenderness. No CVA Tenderness with fist.] NEUROLOGICAL: [Cranial nerves II through XII grossly intact. Normal speech, normal gait.] SKIN: [Warm, Dry, normal turgor, no rashes or lesions noted.] 06/29/17 18:38 Past History - Past Medical History Allergies/Adverse Reactions: Allergies Allergy/AdvReac Type Severity Reaction Status Date / Time No Known Allergies Allergy Verified 06/29/17 16:30 Home Medications: Ambulatory Orders Amlodipine Besylate 10 mg PO DAILY 04/09/16 Losartan Potassium [Cozaar -] 100 mg PO DAILY 04/09/16 Albuterol Sulfate Inhaler - [Ventolin HFA Inhaler -] 1 - 2 inh PO BID 06/26/17 Famotidine [Pepcid -] 20 mg PO DAILY #30 tablet 06/26/17 Metoprolol Tartrate 100 mg PO BID 06/28/17 Levofloxacin [Levaquin] 500 mg PO DAILY #10 tablet 06/29/17 Methadone [Dolophine -] 30 mg PO DAILY@0600 MDD 40 06/29/17 Metronidazole [Flagyl -] 500 mg PO DAILY #10 tablet 06/29/17 COPD: Yes Diabetes: No HTN: Yes Psychiatric Problems: Yes Seizures: Yes - Reproductive History Therapeutic (s) & number: No - Immunization History Immunization Up to Date: Yes - Suicide/Smoking/Psychosocial Hx Smoking Status: Yes Smoking History: Former smoker Have you smoked in the past 12 months: No Number of Cigarettes Smoked Daily: 4 If you are a former smoker, when did you quit?: 2 MO Information on smoking cessation initiated: No 'Breaking Loose' booklet given: 09/01/13 Hx Alcohol Use: No Drug/Substance Use Hx: No Substance Use Type: None Hx Substance Use Treatment: Yes Abd/GI Specific PMHX - Complaint Specific PMHX Colitis: No Diverticulitis: Yes GERD: Yes Hepatitis: No Irritable Bowel Synd (IBS): No Pancreatitis: No GI Ulcer Disease: No *Physical Exam - Vital Signs Last Vital Signs Temp Pulse Resp BP Pulse Ox 98.2 F 61 20 131/79 100 06/29/17 16:27 06/29/17 16:27 06/29/17 16:27 06/29/17 16:27 06/29/17 16:27 ED Treatment Course - LABORATORY CBC & Chemistry Diagram: 06/29/17 16:42 06/29/17 16:42 - ADDITIONAL ORDERS Additional order review: Laboratory Results 06/29/17 06/29/17 06/29/17 17:40 16:42 16:42 WBC 4.1 RBC 4.35 Hgb 14.1 D Hct 42.0 MCV 96.6 H MCH 32.3 MCHC 33.5 RDW 12.5 Plt Count 246 D MPV 7.6 Neutrophils % 61.3 Lymphocytes % 28.7 D Monocytes % 7.8 Eosinophils % 1.5 D Basophils % 0.7 PT with INR INR Sodium 139 Potassium 3.8 Chloride 104 Carbon Dioxide 28 Anion Gap 7 L BUN 9 D Creatinine 1.3 H D Creat Clearance w eGFR 42.22 Random Glucose 97 Calcium 9.7 Total Bilirubin 0.5 AST 34 D ALT 36 D Alkaline Phosphatase 94 Total Protein 7.7 Albumin 4.3 Urine Color Dkyellow Urine Appearance Slcloudy Urine pH 5.0 Ur Specific [place] 1.019 Urine Protein Negative Urine Glucose (UA) Negative Urine Ketones 1+ H Urine Blood Negative Urine Nitrite Negative Urine Bilirubin Negative Urine Urobilinogen 2.0 H Ur Leukocyte Esterase 1+ H 06/29/17 16:42 WBC RBC Hgb Hct MCV MCH MCHC RDW Plt Count MPV Neutrophils % Lymphocytes % Monocytes % Eosinophils % Basophils % PT with INR 14.40 H INR 1.27 H Sodium Potassium Chloride Carbon Dioxide Anion Gap BUN Creatinine Creat Clearance w eGFR Random Glucose Calcium Total Bilirubin AST ALT Alkaline Phosphatase Total Protein Albumin Urine Color Urine Appearance Urine pH Ur Specific [place] Urine Protein Urine Glucose (UA) Urine Ketones Urine Blood Urine Nitrite Urine Bilirubin Urine Urobilinogen Ur Leukocyte Esterase 06/29/17 16:42 RBC 4.35 MCV 96.6 H MCHC 33.5 RDW 12.5 MPV 7.6 Neutrophils % 61.3 Lymphocytes % 28.7 D Monocytes % 7.8 Eosinophils % 1.5 D Basophils % 0.7 Medical Decision Making - Medical Decision Making 06/29/17 18:42 A/P: Patient here with generalized lower abdominal pain worse on the left than the right, afebrile. No vomiting, no diarrhea was diagnosed with diverticulitis and DC'd from inpatient hospitalization this morning on Levaquin and Flagyl. Patient was able to take the antibiotics today feels that she is unable to eat pain is 5 out of 10 described as constant and burning. I spoke to Dr. Evelin Clemons, labs are recent and unchanged from previous hospitalization will order CT scan of abdomen and pelvis with and without contrast. Consider hospitalization after CT results for uncontrolled pain, nothing by mouth status. I have ordered IV Tylenol and Protonix IV, saline lock and IV fluids I am signing this patient out to my colleague: [BILL Mathew] In brief, this patient is being seen in the ED for a chief complaint of: [ Abdominal pain, lower, left sided] I have completed the initial assessment interview note and have ordered: [labs, UA, CT scan, IV Tylenol and Protonix, urine tox] I have reviewed the following results: [Labs, UA ] Pending results are: [Urine toxicology, CT scan] Please call the PCP: [Dr. Clemons at: [phone] ] Plan for disposition is as follows: [Pending] *DC/Admit/Observation/Transfer - Referrals Referrals: Joe Gallagher MD [Primary Care Provider] - - Patient Instructions - Post Discharge Activity
[2017-06-29 18:05] LABS: EPI CELLS FEW /HPF (FEW); URINE HYALINE CAST 8 /lpf; URINE MUCUS RARE
[2017-06-29] MEDS ORDERED: ACETAMINOPHEN 1000 MG/100 ML VIAL (NON FORMULARY) IVPB ONE (18:25)
[2017-06-29] MEDS ORDERED: PANTOPRAZOLE SODIUM 40 MG VIAL IVPUSH ONE (18:26)
--- NOTE | 2017-06-29 19:19 | PDOC ---
*Physical Exam - Vital Signs Last Vital Signs Temp Pulse Resp BP Pulse Ox 98.2 F 61 20 131/79 100 06/29/17 16:27 06/29/17 16:27 06/29/17 16:27 06/29/17 16:27 06/29/17 16:27 - Physical Exam General Appearance: Yes: Mild Distress ED Treatment Course - LABORATORY CBC & Chemistry Diagram: 06/29/17 16:42 06/29/17 16:42 - ADDITIONAL ORDERS Additional order review: Laboratory Results 06/29/17 06/29/17 06/29/17 17:40 16:42 16:42 PT with INR 14.40 H INR 1.27 H Sodium 139 Potassium 3.8 Chloride 104 Carbon Dioxide 28 Anion Gap 7 L BUN 9 D Creatinine 1.3 H D Creat Clearance w eGFR 42.22 Random Glucose 97 Calcium 9.7 Total Bilirubin 0.5 AST 34 D ALT 36 D Alkaline Phosphatase 94 Total Protein 7.7 Albumin 4.3 Urine Color Dkyellow Urine Appearance Slcloudy Urine pH 5.0 Ur Specific [place] 1.019 Urine Protein Negative Urine Glucose (UA) Negative Urine Ketones 1+ H Urine Blood Negative Urine Nitrite Negative Urine Bilirubin Negative Urine Urobilinogen 2.0 H Ur Leukocyte Esterase 1+ H Urine WBC (Auto) 3 Urine RBC (Auto) 6 Ur Epithelial Cells Few Hyaline Casts 8 Urine Mucus Rare 06/29/17 16:42 RBC 4.35 MCV 96.6 H MCHC 33.5 RDW 12.5 MPV 7.6 Neutrophils % 61.3 Lymphocytes % 28.7 D Monocytes % 7.8 Eosinophils % 1.5 D Basophils % 0.7 Medical Decision Making - Medical Decision Making 06/29/17 21:28 Patient given IV protonix, zofran, tylenol . patient is refusing PO. " I am unable to eat or drink." patient is unable to tolerate PO contrast. plain contrast ordered. Dr. Clemons is made aware. patient is to be admitted for further management of care. *DC/Admit/Observation/Transfer Diagnosis at time of Disposition: Anorexia, Nausea Abdominal pain Qualifiers: Abdominal location: generalized Qualified Code(s): R10.84 - Generalized abdominal pain - Discharge Dispostion Admit: Yes - Referrals Referrals: Joe Gallagher MD [Primary Care Provider] - - Patient Instructions - Post Discharge Activity
[2017-06-29] MEDS ORDERED: ONDANSETRON 4 MG/2 ML VIAL IVPUSH ONE (19:33)
[2017-06-29] MEDS ORDERED: ACETAMINOPHEN INJECTION 100 ML IVPB ONE (19:38)
[2017-06-29] MEDS ORDERED: ONDANSETRON 4 MG/2 ML VIAL ONE (19:39)
[2017-06-29] MEDS ORDERED: PANTOPRAZOLE SODIUM 40 MG VIAL ONE (19:40)
[2017-06-29 19:48] LABS: COCAINE, UR NEGATIVE ng/ml (CUTOFF=300); METHADONE, UR POSITIVE ng/ml (CUTOFF=300); URINE AMPHETAMINES NEGATIVE ng/ml (CUTOFF=500); URINE BARBITURATES NEGATIVE ng/ml (CUTOFF=200); URINE BENZODIAZEPINES NEGATIVE ng/ml (CUTOFF=200)
[2017-06-29] MEDS ORDERED: SODIUM CHLORIDE 1,000 ML IV STA (21:42)
[2017-06-30] MEDS ORDERED: METOPROLOL TARTRATE 50 MG TABLET (FP) PO ONE (00:30)
[2017-06-30] MEDS ORDERED: METOPROLOL TARTRATE 50 MG TABLET (FP) ONE (00:31)
[2017-06-30] MEDS ORDERED: ONDANSETRON 4 MG/2 ML VIAL IVPUSH PRN (03:06)
[2017-06-30] MEDS: DEXTROSE 5%-0.45% SALINE 1,000 ML IV SCH ×2 (03:55→08:44)
[2017-06-30] MEDS: METRONIDAZOLE 500 MG PREMIXED 500 MG/100 ML MG IVPB SCH ×3 (03:56→18:18)
[2017-06-30 04:45] VITALS: BMI 22.6
[2017-06-30] MEDS ORDERED: METHADONE HCL 40 MG DISPERSABLE TABLET PO SCH (06:00)
[2017-06-30] MEDS ORDERED: METHADONE HCL 10 MG TABLET PO ONE (06:15)
[2017-06-30] MEDS ORDERED: METHADONE HCL 40 MG DISPERSABLE TABLET ONE (09:33)
[2017-06-30] MEDS: METHADONE HCL 40 MG DISPERSABLE TABLET PO SCH (09:38)
[2017-06-30] MEDS: HEPARIN NA (PORCINE) 5,000 UNITS/ML 1ML VIAL SQ SCH ×2 (09:56→21:31)
[2017-06-30] MEDS: PANTOPRAZOLE 40 MG TABLET (FP) PO SCH (09:56)
[2017-06-30] MEDS: amLODIPine BESYLATE 10 MG TABLET (FP) PO SCH (09:56)
[2017-06-30] MEDS: METOPROLOL TARTRATE 50 MG TABLET (FP) PO SCH ×2 (09:56→21:31)
[2017-06-30] MEDS ORDERED: LOSARTAN POTASSIUM 100 MG TABLET PO SCH (10:00)
[2017-06-30] MEDS ORDERED: LEVOFLOXACIN 500 MG IVPB 500 MG/100 ML BAG IVPB SCH (10:00)
[2017-06-30] MEDS ORDERED: PATIENT'S OWN MEDICATION (NON-FORMULARY) (Famotidine [Pepcid -] 20 MG) PO SCH (10:00)
--- NOTE | 2017-06-30 14:33 | EKG ---
Test Reason : Blood Pressure : / mmHG Vent. Rate : 052 BPM Atrial Rate : 052 BPM P-R Int : 154 ms QRS Dur : 086 ms QT Int : 452 ms P-R-T Axes : 084 072 075 degrees QTc Int : 420 ms POOR DATA QUALITY, INTERPRETATION MAY BE ADVERSELY AFFECTED SINUS BRADYCARDIA VOLTAGE CRITERIA FOR LEFT VENTRICULAR HYPERTROPHY ABNORMAL ECG WHEN COMPARED WITH ECG OF 27-JUN-2017 13:58, NO SIGNIFICANT CHANGE WAS FOUND Confirmed by BENEDICTO JAQUEZ MD ([id number]) on 06/30/2017 2:33:19 PM Referred By: Confirmed By:BENEDICTO JAQUEZ MD
--- NOTE | 2017-06-30 16:47 | HP ---
Admitting History and Physical - Admission History of Present Illness: Pt is a 56 y/o female w/ PMH significant for HTN, GERD, ex-IVDA(on methadone), seizure dz, COPD on home O2 prn, and diverticulitis. Pt was ca'ed home after being hospitalized for diverticulitis on po levaquin/flagyl. However at home pt again developed intractable abdominal pain wc was mostly in LLQ. Pt denies any nausea/vomiting/fever/chills. Pt also unable to tolerate any PO and refused contrast on ct scan abd wc did not show any acute pathology except for adenxal cyst. 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 Cardiovascular: Yes: HTN Pulmonary: Yes: Pneumonia Gastrointestinal: Yes: Diverticulitis, GERD - Past Surgical History Past Surgical History: Yes: None - Smoking History Smoking history: Former smoker Have you smoked in the past 12 months: No Aproximately how many cigarettes per day: 4 If you are a former smoker, when did you quit?: 2 MO - Alcohol/Substance Use Hx Alcohol Use: No History of Substance Use: reports: Heroin Home Medications - Allergies Allergies/Adverse Reactions: Allergies Allergy/AdvReac Type Severity Reaction Status Date / Time No Known Allergies Allergy Verified 06/29/17 16:30 - Home Medications Home Medications: Ambulatory Orders Amlodipine Besylate 10 mg PO DAILY 04/09/16 Losartan Potassium [Cozaar -] 100 mg PO DAILY 04/09/16 Albuterol Sulfate Inhaler - [Ventolin HFA Inhaler -] 1 - 2 inh PO BID 06/26/17 Famotidine [Pepcid -] 20 mg PO DAILY #30 tablet 06/26/17 Metoprolol Tartrate 100 mg PO BID 06/28/17 Levofloxacin [Levaquin] 500 mg PO DAILY #10 tablet 06/29/17 Methadone [Dolophine -] 30 mg PO DAILY@0600 MDD 40 06/29/17 Metronidazole [Flagyl -] 500 mg PO DAILY #10 tablet 06/29/17 Albuterol Sulfate Inhaler - [Ventolin Hfa Inhaler -] 1 - 2 inh PO Q4H #1 inhaler 07/03/17 Levofloxacin [Levaquin] 500 mg PO DAILY #7 tablet 07/03/17 Lipase/Protease/Amylase [Severino Reilly 36,000 Units Capsule] 1 cap PO TIDCM #90 capsule. 07/03/17 Methadone [Dolophine -] 40 mg PO DAILY@0600 #30 tablet MDD 1 07/03/17 Prednisone [Deltasone -] 5 mg PO DAILY tablet 07/03/17 Family Disease History - Family Disease History Family History: Unremarkable Family Disease History: Diabetes: Grandparent (maternal GM d. DM, age 68), Mother (d. DM, age 56), Sister (d. DM, HIV, meningitis, age 42), Heart Disease: Grandparent, Mother, CA: Father (d. colon ca?, age unknown) Review of Systems - Review of Systems Constitutional: reports: No Symptoms, Loss of Appetite Eyes: reports: No Symptoms HENT: reports: No Symptoms Cardiovascular: reports: No Symptoms Respiratory: reports: Cough Gastrointestinal: reports: Abdominal Pain Physical Examination Vital Signs: Vital Signs Temperature 98.2 F 06/30/17 14:31 Pulse Rate 58 L 06/30/17 14:31 Respiratory Rate 20 06/30/17 14:31 Blood Pressure 140/65 06/30/17 14:31 O2 Sat by Pulse Oximetry (%) 100 06/30/17 09:00 Constitutional: Yes: No Distress Eyes: Yes: WNL HENT: Yes: WNL Neck: Yes: WNL, Supple Cardiovascular: Yes: WNL, Regular Rate and Rhythm Respiratory: Yes: Diminished Gastrointestinal: Yes: WNL, Normal Bowel Sounds, Soft Extremities: Yes: WNL Edema: No Neurological: Yes: WNL ...Motor Strength: WNL Labs: CBC, BMP 06/29/17 16:42 06/29/17 16:42 Problem List - Problems (1) Abdominal pain Assessment/Plan: Cont IV levaquin/flagyl 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
[2017-06-30] MEDS ORDERED: ALBUTEROL SO4 2.5/IPRATROPIUM 0.5 INH SOL 3 ML VIAL.NEB. NEB PRN (18:39)
--- NOTE | 2017-06-30 19:54 | CON.GI ---
Consult Consult Specialty:: gi Reason for Consultation:: abdominal pain - History of Present Illness History of Present Illness: 56 y/o female was recently discharged was readmitted with abdominal pain and blaoting which has resolved prior to discharge. Catscan revealed sigmoid diverticulitis with adnexal lesions. She is tolerating clear liquids. 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 Cardio/Vascular: Yes: HTN Pulmonary: Yes: Pneumonia Additional Medical History: past Heroin abuse - Past Surgical History Past Surgical History: Yes: None - Alcohol/Substance Use Hx Alcohol Use: No History of Substance Use: reports: Heroin - Smoking History Smoking history: Former smoker Have you smoked in the past 12 months: No Aproximately how many cigarettes per day: 4 If you are a former smoker, when did you quit?: 2 MO - Social History Usual Living Arrangement: With Child (son) Home Medications - Allergies Allergies/Adverse Reactions: Allergies Allergy/AdvReac Type Severity Reaction Status Date / Time No Known Allergies Allergy Verified 06/29/17 16:30 - Home Medications Home Medications: Ambulatory Orders Amlodipine Besylate 10 mg PO DAILY 04/09/16 Losartan Potassium [Cozaar -] 100 mg PO DAILY 04/09/16 Albuterol Sulfate Inhaler - [Ventolin HFA Inhaler -] 1 - 2 inh PO BID 06/26/17 Famotidine [Pepcid -] 20 mg PO DAILY #30 tablet 06/26/17 Metoprolol Tartrate 100 mg PO BID 06/28/17 Levofloxacin [Levaquin] 500 mg PO DAILY #10 tablet 06/29/17 Methadone [Dolophine -] 30 mg PO DAILY@0600 MDD 40 06/29/17 Metronidazole [Flagyl -] 500 mg PO DAILY #10 tablet 06/29/17 Family Disease History - Family Disease History Family Disease History: Diabetes: Grandparent (maternal GM d. DM, age 68), Mother (d. DM, age 56), Sister (d. DM, HIV, meningitis, age 42), Heart Disease: Grandparent, Mother, CA: Father (d. colon ca?, age unknown) Physical Exam-GI Vital Signs: Vital Signs Temperature 98.0 F 06/30/17 17:35 Pulse Rate 57 L 06/30/17 17:35 Respiratory Rate 20 06/30/17 17:35 Blood Pressure 129/71 06/30/17 17:35 O2 Sat by Pulse Oximetry (%) 100 06/30/17 09:00 Constitutional: Yes: Well Nourished Eyes: Yes: Conjunctiva Clear HENT: Yes: Atraumatic Neck: Yes: Supple Cardiovascular: Yes: Regular Rate and Rhythm Respiratory: Yes: CTA Bilaterally ...Palpate: Yes: Pulsatile Mass, Soft, Tenderness (--llq). No: Firm/Rigid, Guarding, Hepatomegaly, Mass, Splenomegaly Labs: CBC, BMP 06/29/17 16:42 06/29/17 16:42 INR, PTT INR 1.27 (0.82-1.09) H 06/29/17 16:42 Problem List - Problems (1) Abdominal pain Assessment/Plan: secondary to diverticulitis and adnexal lesions R> gynecology consult IV antibiotics and IV hydration Code(s): R10.9 - UNSPECIFIED ABDOMINAL PAIN Qualifiers: Abdominal location: generalized Qualified Code(s): R10.84 - Generalized abdominal pain
[2017-06-30] MEDS: predniSONE 5 MG TABLET (UD) PO SCH (21:31)
[2017-06-30] MEDS: CEFTRIAXONE 1 G/50 ML PREMIX 50 ML IVPB SCH (21:39)
[2017-07-01] MEDS: DEXTROSE 5%-0.45% SALINE 1,000 ML IV SCH ×3 (02:08→20:45)
[2017-07-01] MEDS: METRONIDAZOLE 500 MG PREMIXED 500 MG/100 ML MG IVPB SCH ×2 (02:08→10:09)
[2017-07-01] MEDS: METHADONE HCL 40 MG DISPERSABLE TABLET PO SCH (06:17)
[2017-07-01] MEDS ORDERED: ACETAMINOPHEN 325 MG TABLET (FP) ONE (07:40)
[2017-07-01 08:21] LABS: BASO % 1.2 % (0-2.0); EOS % 2.5 % (0-4.5); HEMATOCRIT 40.3 % (32.4-45.2); HEMOGLOBIN 13.2 GM/dL (10.7-15.3); LYMPH % 37.7 % (8-40); MCH 31.6 pg (25.7-33.7); MCHC 32.9 g/dl (32.0-36.0); MEAN CELL VOLUME 96.2 fl (80-96); MEAN PLT VOLUME 7.6 fl (7.5-11.1); MONO % 10.1 % (3.8-10.2); NEUT % 48.5 % (42.8-82.8); PLATELET COUNT 237 K/MM3 (134-434); RBC 4.19 M/mm3 (3.60-5.2); RDW 12.2 % (11.6-15.6); WHITE BLOOD COUNT 4.4 K/mm3 (4.0-10.0)
[2017-07-01 08:32] LABS: CHLORIDE 108 mmol/L (98-107); POTASSIUM 3.7 mmol/L (3.5-5.1); SODIUM 141 mmol/L (136-145)
[2017-07-01 08:48] LABS: ALBUMIN 3.9 g/dl (3.4-5.0); ALK PHOS 83 U/L (45-117); ANION GAP 8 (8-16); BILIRUBIN,TOTAL 0.3 mg/dL (0.2-1.0); BLOOD UREA NITROGEN 6 mg/dL (7-18); CALCIUM 8.9 mg/dL (8.5-10.1); CO2 25 mmol/L (21-32); GLUCOSE,RANDOM 122 mg/dL (74-106); SGOT/AST 29 U/L (15-37); SGPT/ALT 39 U/L (12-78); TOT PROT 6.9 g/dl (6.4-8.2)
[2017-07-01] MEDS: predniSONE 5 MG TABLET (UD) PO SCH (10:09)
[2017-07-01] MEDS: METOPROLOL TARTRATE 50 MG TABLET (FP) PO SCH ×2 (10:09→21:29)
[2017-07-01] MEDS: HEPARIN NA (PORCINE) 5,000 UNITS/ML 1ML VIAL SQ SCH ×2 (10:09→21:30)
[2017-07-01] MEDS: PANTOPRAZOLE 40 MG TABLET (FP) PO SCH (10:09)
[2017-07-01] MEDS: LOSARTAN POTASSIUM 50 MG TABLET (FP) PO SCH (10:09)
[2017-07-01] MEDS: CEFTRIAXONE 1 G/50 ML PREMIX 50 ML IVPB SCH (10:10)
[2017-07-01] MEDS: amLODIPine BESYLATE 10 MG TABLET (FP) PO SCH (10:29)
--- NOTE | 2017-07-01 17:36 | PN ---
GI Progress Note Subjective: abdominal pain and bloating improved - Objective Vital Signs: Vital Signs Temperature 97.9 F 07/01/17 14:24 Pulse Rate 50 L 07/01/17 14:24 Respiratory Rate 20 07/01/17 14:24 Blood Pressure 166/71 07/01/17 14:24 O2 Sat by Pulse Oximetry (%) 100 07/01/17 10:00 Constitutional: Well Nourished Eyes: Yes: Conjunctiva Clear HENT: Yes: Atraumatic Neck: Yes: Supple Cardiovascular: Yes: Regular Rate and Rhythm Respiratory: Yes: CTA Bilaterally ...Palpate: Yes: Soft. No: Firm/Rigid, Guarding, Hepatomegaly, Mass, Pulsatile Mass, Splenomegaly, Tenderness ...Percussion: Yes: Tympanitic Labs: CBC, BMP 07/01/17 06:35 07/01/17 06:35 INR, PTT INR 1.27 (0.82-1.09) H 06/29/17 16:42 Problem List - Problems (1) Abdominal pain Assessment/Plan: resolving diverituculitis, suspect small bowel bacterial overgrowth and pancretic insufficiency R> staron Flagyl po and Creon Code(s): R10.9 - UNSPECIFIED ABDOMINAL PAIN Qualifiers: Abdominal location: generalized (2) Constipation due to opioid therapy Assessment/Plan: R.Relistor 12mg daily then start on Movantik 25mg daily as an outpatient Code(s): K59.03 - DRUG INDUCED CONSTIPATION; T40.2X5A - ADVERSE EFFECT OF OTHER OPIOIDS, INITIAL ENCOUNTER
--- NOTE | 2017-07-01 18:29 | PN ---
Progress Note, Physician History of Present Illness: Pt now complains of SOB and abdominalbloating - Current Medication List Current Medications: Active Medications Acetaminophen (Tylenol -) 650 mg PO Q4H PRN PRN Reason: pain Albuterol/Ipratropium (Duoneb -) 1 amp NEB Q6H PRN PRN Reason: ASTHMA Amlodipine Besylate (Norvasc -) 10 mg PO DAILY [facility] Last Admin: 07/01/17 10:29 Dose: 10 mg Heparin Sodium (Porcine) (Heparin -) 5,000 unit SQ BID [facility] Last Admin: 07/01/17 10:09 Dose: 5,000 unit Dextrose/Sodium Chloride (D5-1/2ns -) 1,000 mls @ 75 mls/hr IV ASDIR [facility] Last Admin: 07/01/17 06:17 Dose: Not Given CEFTRIAXONE 1 G/50 ML PREMIX (Ceftriaxone 1 Gm-D5w Bag) 50 mls @ 100 mls/hr IVPB DAILY [facility] Last Admin: 07/01/17 10:10 Dose: 100 mls/hr Losartan Potassium (Cozaar -) 100 mg PO DAILY [facility] Last Admin: 07/01/17 10:09 Dose: 100 mg Methadone HCl (Dolophine -) 40 mg PO DAILY@0600 [facility] Last Admin: 07/01/17 06:17 Dose: 40 mg Methylnaltrexone [place] (Relistor -) 12 mg SQ DAILY [facility] Metoprolol Tartrate (Lopressor -) 100 mg PO BID [facility] Last Admin: 07/01/17 10:09 Dose: 100 mg Metronidazole (Flagyl -) 250 mg PO TID [facility] Ondansetron HCl (Zofran Injection) 4 mg IVPUSH Q6H PRN PRN Reason: NAUSEA AND/OR VOMITING Pancrelipase (Creon Dr 36,000 Units Capsule) 1 cap PO TIDCM [facility] Pantoprazole Sodium (Protonix -) 40 mg PO DAILY [facility] Last Admin: 07/01/17 10:09 Dose: 40 mg Prednisone (Deltasone -) 5 mg PO DAILY [facility] Last Admin: 07/01/17 10:09 Dose: 5 mg - Objective Vital Signs: Vital Signs Temperature 97.9 F 07/01/17 14:24 Pulse Rate 50 L 07/01/17 14:24 Respiratory Rate 20 07/01/17 14:24 Blood Pressure 166/71 07/01/17 14:24 O2 Sat by Pulse Oximetry (%) 100 07/01/17 10:00 HENT: Yes: WNL Neck: Yes: WNL, Supple Cardiovascular: Yes: WNL, Regular Rate and Rhythm Respiratory: Yes: Diminished Gastrointestinal: Yes: WNL, Normal Bowel Sounds, Soft Edema: No Labs: CBC, BMP 07/01/17 06:35 07/01/17 06:35 INR, PTT INR 1.27 (0.82-1.09) H 06/29/17 16:42 Problem List - Problems (1) Abdominal pain Assessment/Plan: Cont IV levaquin/flagyl 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
[2017-07-01] MEDS: LIPASE/PROTEASE/AMYLASE 36,000 UNIT CAPSULE PO SCH (18:59)
[2017-07-01] MEDS: Methylnaltrexone Bromide 12 MG/0.6 ML KIT SQ SCH (20:44)
[2017-07-01] MEDS: metroNIDAZOLE 250 MG TABLET PO SCH (21:29)
[2017-07-02] MEDS: ACETAMINOPHEN 325 MG TABLET (FP) PO PRN (02:12)
[2017-07-02] MEDS ORDERED: amLODIPine BESYLATE 2.5 MG TABLET (FP) PO ONE (02:30)
[2017-07-02] MEDS: metroNIDAZOLE 250 MG TABLET PO SCH ×3 (05:54→22:55)
[2017-07-02] MEDS: METHADONE HCL 40 MG DISPERSABLE TABLET PO SCH (05:54)
[2017-07-02] MEDS ORDERED: PT OWN MED DRAWER 7, Y5N ONE ×2 (08:20→09:48)
[2017-07-02] MEDS: amLODIPine BESYLATE 10 MG TABLET (FP) PO SCH (10:02)
[2017-07-02] MEDS: predniSONE 5 MG TABLET (UD) PO SCH (10:02)
[2017-07-02] MEDS: Methylnaltrexone Bromide 12 MG/0.6 ML KIT SQ SCH (10:03)
[2017-07-02] MEDS: LOSARTAN POTASSIUM 50 MG TABLET (FP) PO SCH (10:03)
[2017-07-02] MEDS: PANTOPRAZOLE 40 MG TABLET (FP) PO SCH (10:03)
[2017-07-02] MEDS: HEPARIN NA (PORCINE) 5,000 UNITS/ML 1ML VIAL SQ SCH ×2 (10:04→22:55)
[2017-07-02] MEDS: LIPASE/PROTEASE/AMYLASE 36,000 UNIT CAPSULE PO SCH ×3 (10:06→17:45)
[2017-07-02] MEDS: CEFTRIAXONE 1 G/50 ML PREMIX 50 ML IVPB SCH (10:13)
[2017-07-02] MEDS: METOPROLOL TARTRATE 50 MG TABLET (FP) PO SCH ×2 (12:11→22:55)
--- NOTE | 2017-07-02 13:09 | CON.OBG ---
Consult Referred by:: Evelin Clemons Reason for Consultation:: Abdominal pain - History of Present Illness Chief Complaint: Abdominal pain History of Present Illness: 56 yo with h/o hypertension admitted due to abdominal pain Patient is postmenopausal and admits to occasional vaginal bleeding. She said that an endometrial biopsy was done in the clinic and was negative. She smokes and is on Methadone. 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 Cat Scan reviewed and there has not been any change in the adnexal cyst size since 2011. Patient denies any previous surgery. 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: Yes: Seizure Cardio/Vascular: Yes: HTN Pulmonary: Yes: Pneumonia ...: No ...: 7 ...Para: 4 Additional Medical History: past Heroin abuse - Past Surgical History Past Surgical History: Yes: None - Alcohol/Substance Use Hx Alcohol Use: No History of Substance Use: reports: Heroin - Smoking History Smoking history: Former smoker Have you smoked in the past 12 months: No Aproximately how many cigarettes per day: 4 If you are a former smoker, when did you quit?: 2 MO - Social History Usual Living Arrangement: With Child (son) Home Medications - Allergies Allergies/Adverse Reactions: Allergies Allergy/AdvReac Type Severity Reaction Status Date / Time No Known Allergies Allergy Verified 06/29/17 16:30 - Home Medications Home Medications: Ambulatory Orders Amlodipine Besylate 10 mg PO DAILY 04/09/16 Losartan Potassium [Cozaar -] 100 mg PO DAILY 04/09/16 Albuterol Sulfate Inhaler - [Ventolin HFA Inhaler -] 1 - 2 inh PO BID 06/26/17 Famotidine [Pepcid -] 20 mg PO DAILY #30 tablet 06/26/17 Metoprolol Tartrate 100 mg PO BID 06/28/17 Levofloxacin [Levaquin] 500 mg PO DAILY #10 tablet 06/29/17 Methadone [Dolophine -] 30 mg PO DAILY@0600 MDD 40 06/29/17 Metronidazole [Flagyl -] 500 mg PO DAILY #10 tablet 06/29/17 Family Disease History - Family Disease History Family Disease History: Diabetes: Grandparent (maternal GM d. DM, age 68), Mother (d. DM, age 56), Sister (d. DM, HIV, meningitis, age 42), Heart Disease: Grandparent, Mother, CA: Father (d. colon ca?, age unknown) Review of Systems - Review of Systems Constitutional: denies: Chills, Diaphoresis, Fever Eyes: reports: No Symptoms HENT: reports: No Symptoms Neck: reports: No Symptoms Cardiovascular: reports: No Symptoms Respiratory: reports: No Symptoms Gastrointestinal: reports: Abdominal Pain Genitourinary: reports: Pain Breasts: reports: No Symptoms Reported Musculoskeletal: reports: No Symptoms Integumentary: reports: No Symptoms Neurological: reports: No Symptoms Endocrine: reports: No Symptoms Hematology/Lymphatic: reports: No Symptoms Psychiatric: reports: No Symptoms Pain Intensity: 4 Physical Exam-LOG BRANDER Vital Signs: Vital Signs Temperature 97.6 F 07/02/17 05:47 Pulse Rate 58 L 07/02/17 05:47 Respiratory Rate 20 07/02/17 05:47 Blood Pressure 141/75 07/02/17 05:47 O2 Sat by Pulse Oximetry (%) 100 07/01/17 21:00 Constitutional: No: No Distress Eyes: Yes: WNL HENT: Yes: WNL Neck: Yes: Supple Cardiovascular: No: Pulse Irregular, Murmur Respiratory: Yes: Regular Gastrointestinal: Yes: Normal Bowel Sounds ...Rectal Exam: Yes: WNL Renal/: Yes: WNL Pelvis: Yes: Tenderness, Other (+ right adnexa tenderness to palpation) Vaginal Exam: Yes: Normal Cervix: Yes: Normal Uterus: Yes: Firm. No: Boggy, Enlarged Breast(s): Yes: WNL Musculoskeletal: Yes: WNL Extremities: Yes: WNL Neurological: Yes: Alert, Oriented ...Motor Strength: WNL Psychiatric: Yes: Alert, Oriented Labs: CBC, BMP 07/01/17 06:35 07/01/17 06:35 Problem List - Problems (1) RLQ abdominal pain Code(s): R10.31 - RIGHT LOWER QUADRANT PAIN Assessment/Plan Pelvic pain R/O ovarian cyst F/U Transvaginal sonogram and tumor markers
--- NOTE | 2017-07-02 13:13 | CON.PULM ---
Consult Consult Specialty:: PULMONARY Referred by:: Dr. Clemons Reason for Consultation:: shortness of breath - History of Present Illness Chief Complaint: abdominal discomfort History of Present Illness: 56yo female with h/o HTN, GERD, COPD on methadone maintenance recently discharged for diverticulitis who was readmitted for abdominal pain. Reports subjective chills. States that when the pain occurs, she becomes short of breath as if her lungs were being restricted. No cough or wheezing. No chest pain or palpitations. She is maintained on albuterol at home. Started smoking at age 15, smoked about 1 PPD until she quit 2 months ago. 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 Cardio/Vascular: Yes: HTN Additional Medical History: past Heroin abuse - Past Surgical History Past Surgical History: Yes: None - Alcohol/Substance Use Hx Alcohol Use: No History of Substance Use: reports: Heroin - Smoking History Smoking history: Former smoker Have you smoked in the past 12 months: No Aproximately how many cigarettes per day: 4 If you are a former smoker, when did you quit?: 2 MO - Social History Usual Living Arrangement: With Child (son) Home Medications - Allergies Allergies/Adverse Reactions: Allergies Allergy/AdvReac Type Severity Reaction Status Date / Time No Known Allergies Allergy Verified 06/29/17 16:30 - Home Medications Home Medications: Ambulatory Orders Amlodipine Besylate 10 mg PO DAILY 04/09/16 Losartan Potassium [Cozaar -] 100 mg PO DAILY 04/09/16 Albuterol Sulfate Inhaler - [Ventolin HFA Inhaler -] 1 - 2 inh PO BID 06/26/17 Famotidine [Pepcid -] 20 mg PO DAILY #30 tablet 06/26/17 Metoprolol Tartrate 100 mg PO BID 06/28/17 Levofloxacin [Levaquin] 500 mg PO DAILY #10 tablet 06/29/17 Methadone [Dolophine -] 30 mg PO DAILY@0600 MDD 40 06/29/17 Metronidazole [Flagyl -] 500 mg PO DAILY #10 tablet 06/29/17 Family Disease History - Family Disease History Family Disease History: Diabetes: Grandparent (maternal GM d. DM, age 68), Mother (d. DM, age 56), Sister (d. DM, HIV, meningitis, age 42), Heart Disease: Grandparent, Mother, CA: Father (d. colon ca?, age unknown) Review of Systems - Review of Systems Constitutional: reports: Chills. denies: Fever Eyes: denies: Recent Change in Vision HENT: denies: Nasal Congestion, Throat Pain Neck: denies: Stiffness, Tenderness Cardiovascular: reports: Shortness of Breath. denies: Chest Pain, Edema, Palpitations Respiratory: reports: SOB. denies: Cough, Hemoptysis, Wheezing Gastrointestinal: reports: Abdominal Pain. denies: Nausea, Vomiting Genitourinary: denies: Dysuria, Hematuria Neurological: denies: Dizziness, Headache Physical Exam Vital Sings: Vital Signs Temperature 97.6 F 07/02/17 05:47 Pulse Rate 58 L 07/02/17 05:47 Respiratory Rate 20 07/02/17 05:47 Blood Pressure 141/75 07/02/17 05:47 O2 Sat by Pulse Oximetry (%) 100 07/01/17 21:00 Constitutional: Yes: Calm Eyes: Yes: Conjunctiva Clear, EOM Intact HENT: Yes: Atraumatic, Normocephalic Neck: Yes: Supple, Trachea Midline Cardiovascular: Yes: Regular Rate and Rhythm Respiratory: Yes: Diminished (decreased breath sounds at the bases) ...Clubbing: No Gastrointestinal: Yes: Normal Bowel Sounds, Soft. No: Tenderness Edema: No Neurological: Yes: Alert, Oriented Labs: CBC, BMP 07/01/17 06:35 07/01/17 06:35 Assessment/Plan Shortness of breath likely due to acute abdominal process/splinting Recent Diverticulitis HTN COPD Adnexal Mass - check CXR - incentive spirometry - inhaled bronchodilators - O2 as needed - DVT prophylaxis - outpt PFTs Thank you for this consult Giovanni De Luna MD
[2017-07-02] MEDS ORDERED: POLYETHYLENE GLYCOL 3350 119 GM BTL PO ONE (17:56)
--- NOTE | 2017-07-02 17:56 | PN ---
GI Progress Note Subjective: tolerating diet, no BM - Objective Vital Signs: Vital Signs Temperature 98.4 F 07/02/17 17:23 Pulse Rate 65 07/02/17 17:23 Respiratory Rate 20 07/02/17 17:23 Blood Pressure 158/75 07/02/17 17:23 O2 Sat by Pulse Oximetry (%) 100 07/02/17 09:00 Constitutional: Well Nourished Eyes: Yes: Conjunctiva Clear HENT: Yes: Atraumatic Neck: Yes: Supple Cardiovascular: Yes: Regular Rate and Rhythm Respiratory: Yes: CTA Bilaterally ...Palpate: Yes: Soft. No: Firm/Rigid, Guarding, Hepatomegaly, Mass, Pulsatile Mass, Splenomegaly, Tenderness Labs: CBC, BMP 07/01/17 06:35 07/01/17 06:35 INR, PTT INR 1.27 (0.82-1.09) H 06/29/17 16:42 Problem List - Problems (1) Abdominal pain Assessment/Plan: --resolved R> continue present management Code(s): R10.9 - UNSPECIFIED ABDOMINAL PAIN Qualifiers: Abdominal location: generalized Qualified Code(s): R10.84 - Generalized abdominal pain (2) Constipation due to opioid therapy Assessment/Plan: Add Miralax to relistor Code(s): K59.03 - DRUG INDUCED CONSTIPATION; T40.2X5A - ADVERSE EFFECT OF OTHER OPIOIDS, INITIAL ENCOUNTER
--- NOTE | 2017-07-02 18:51 | PN ---
Progress Note, Physician History of Present Illness: Pt feeling better - Current Medication List Current Medications: Active Medications Acetaminophen (Tylenol -) 650 mg PO Q4H PRN PRN Reason: pain Last Admin: 07/02/17 02:12 Dose: 650 mg Albuterol/Ipratropium (Duoneb -) 1 amp NEB Q6H PRN PRN Reason: ASTHMA Amlodipine Besylate (Norvasc -) 10 mg PO DAILY [facility] Last Admin: 07/02/17 10:02 Dose: 10 mg Heparin Sodium (Porcine) (Heparin -) 5,000 unit SQ BID [facility] Last Admin: 07/02/17 10:04 Dose: 5,000 unit CEFTRIAXONE 1 G/50 ML PREMIX (Ceftriaxone 1 Gm-D5w Bag) 50 mls @ 100 mls/hr IVPB DAILY [facility] Last Admin: 07/02/17 10:13 Dose: 100 mls/hr Losartan Potassium (Cozaar -) 100 mg PO DAILY [facility] Last Admin: 07/02/17 10:03 Dose: 100 mg Methadone HCl (Dolophine -) 40 mg PO DAILY@0600 [facility] Last Admin: 07/02/17 05:54 Dose: 40 mg Methylnaltrexone [place] (Relistor -) 12 mg SQ DAILY [facility] Last Admin: 07/02/17 10:03 Dose: 12 mg Metoprolol Tartrate (Lopressor -) 100 mg PO BID [facility] Last Admin: 07/02/17 12:11 Dose: Not Given Metronidazole (Flagyl -) 250 mg PO TID [facility] Last Admin: 07/02/17 14:48 Dose: 250 mg Ondansetron HCl (Zofran Injection) 4 mg IVPUSH Q6H PRN PRN Reason: NAUSEA AND/OR VOMITING Pancrelipase (Creon Dr 36,000 Units Capsule) 1 cap PO TIDCM [facility] Last Admin: 07/02/17 17:45 Dose: 1 cap Pantoprazole Sodium (Protonix -) 40 mg PO DAILY [facility] Last Admin: 07/02/17 10:03 Dose: 40 mg Prednisone (Deltasone -) 5 mg PO DAILY [facility] Last Admin: 07/02/17 10:02 Dose: 5 mg - Objective Vital Signs: Vital Signs Temperature 98.4 F 07/02/17 17:23 Pulse Rate 65 07/02/17 17:23 Respiratory Rate 20 07/02/17 17:23 Blood Pressure 158/75 07/02/17 17:23 O2 Sat by Pulse Oximetry (%) 100 07/02/17 09:00 HENT: Yes: WNL Neck: Yes: WNL, Supple Cardiovascular: Yes: WNL, Regular Rate and Rhythm Respiratory: Yes: WNL, Regular, CTA Bilaterally Gastrointestinal: Yes: WNL, Normal Bowel Sounds, Soft Labs: CBC, BMP 07/01/17 06:35 07/01/17 06:35 INR, PTT INR 1.27 (0.82-1.09) H 06/29/17 16:42 Problem List - Problems (1) Abdominal pain Assessment/Plan: Cont IV levaquin/flagyl 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
[2017-07-03] MEDS: METHADONE HCL 40 MG DISPERSABLE TABLET PO SCH (06:27)
[2017-07-03] MEDS: metroNIDAZOLE 250 MG TABLET PO SCH (06:27)
[2017-07-03] MEDS: ACETAMINOPHEN 325 MG TABLET (FP) PO PRN (09:41)
[2017-07-03] MEDS: predniSONE 5 MG TABLET (UD) PO SCH (09:41)
[2017-07-03] MEDS: amLODIPine BESYLATE 10 MG TABLET (FP) PO SCH (09:41)
[2017-07-03] MEDS: LOSARTAN POTASSIUM 50 MG TABLET (FP) PO SCH (09:41)
[2017-07-03] MEDS: HEPARIN NA (PORCINE) 5,000 UNITS/ML 1ML VIAL SQ SCH (09:42)
[2017-07-03] MEDS: PANTOPRAZOLE 40 MG TABLET (FP) PO SCH (09:42)
[2017-07-03] MEDS: CEFTRIAXONE 1 G/50 ML PREMIX 50 ML IVPB SCH (09:42)
[2017-07-03] MEDS: LIPASE/PROTEASE/AMYLASE 36,000 UNIT CAPSULE PO SCH ×2 (09:44→11:52)
[2017-07-03] MEDS: Methylnaltrexone Bromide 12 MG/0.6 ML KIT SQ SCH (09:44)
--- NOTE | 2017-07-03 12:26 | PN ---
Progress Note (short form) - Note Progress Note: PULMONARY States breathing is improved. Less abdominal bloating. CXR without acute changes. Last Vital Signs Temp Pulse Resp BP Pulse Ox 97.7 F 61 20 153/74 98 07/03/17 05:52 07/03/17 05:52 07/03/17 05:52 07/03/17 05:52 07/02/17 20:25 Gen: NAD at rest Heart: RRR Lung: decreased breath sounds at the bases Abd: soft, nontender Ext: no edema CBC, BMP 07/01/17 06:35 07/01/17 06:35 Active Medications Acetaminophen (Tylenol -) 650 mg PO Q4H PRN PRN Reason: pain Last Admin: 07/03/17 09:41 Dose: 650 mg Albuterol/Ipratropium (Duoneb -) 1 amp NEB Q6H PRN PRN Reason: ASTHMA Amlodipine Besylate (Norvasc -) 10 mg PO DAILY [facility] Last Admin: 07/03/17 09:41 Dose: 10 mg Heparin Sodium (Porcine) (Heparin -) 5,000 unit SQ BID [facility] Last Admin: 07/03/17 09:42 Dose: 5,000 unit CEFTRIAXONE 1 G/50 ML PREMIX (Ceftriaxone 1 Gm-D5w Bag) 50 mls @ 100 mls/hr IVPB DAILY [facility] Last Admin: 07/03/17 09:42 Dose: 100 mls/hr Losartan Potassium (Cozaar -) 100 mg PO DAILY [facility] Last Admin: 07/03/17 09:41 Dose: 100 mg Methadone HCl (Dolophine -) 40 mg PO DAILY@0600 [facility] Last Admin: 07/03/17 06:27 Dose: 40 mg Methylnaltrexone S[place] (Relistor -) 12 mg SQ DAILY [facility] Last Admin: 07/03/17 09:44 Dose: 12 mg Metoprolol Tartrate (Lopressor -) 100 mg PO BID [facility] Last Admin: 07/02/17 22:55 Dose: 100 mg Metronidazole (Flagyl -) 250 mg PO TID [facility] Last Admin: 07/03/17 06:27 Dose: 250 mg Ondansetron HCl (Zofran Injection) 4 mg IVPUSH Q6H PRN PRN Reason: NAUSEA AND/OR VOMITING Pancrelipase (Creon Dr 36,000 Units Capsule) 1 cap PO TIDCM [facility] Last Admin: 07/03/17 11:52 Dose: 1 cap Pantoprazole Sodium (Protonix -) 40 mg PO DAILY [facility] Last Admin: 07/03/17 09:42 Dose: 40 mg Prednisone (Deltasone -) 5 mg PO DAILY [facility] Last Admin: 07/03/17 09:41 Dose: 5 mg A/P Shortness of breath likely due to acute abdominal process/splinting Recent Diverticulitis HTN COPD Adnexal Mass - incentive spirometry - inhaled bronchodilators - O2 as needed - DVT prophylaxis - outpt PFTs
[2017-07-03] MEDS: METOPROLOL TARTRATE 50 MG TABLET (FP) PO SCH (12:52)
[2017-07-03 15:47] VITALS: BP 135/64; PULSE 55; TEMP 97.8
== END 2017-07-03 13:30 | disposition home or self-care (01) | DRG 244 ==
LOC: JER 16:18 → JERBED 21:38 → J7W 07-01 01:09
PROVIDERS: ADMIT Internal Medicine; ATTEND Internal Medicine
DX: K57.92 Diverticulitis of intestine, part unspecified, without perforation or abscess without bleeding (principal); J44.9 Chronic obstructive pulmonary disease, unspecified; K21.9 Gastro-esophageal reflux disease without esophagitis; I10 Essential (primary) hypertension; Z87.891 Personal history of nicotine dependence; R63.0 Anorexia; Z99.81 Dependence on supplemental oxygen; K59.03 Drug induced constipation; T40.2X5A Adverse effect of other opioids, initial encounter; R19.09 Other intra-abdominal and pelvic swelling, mass and lump
CPT/HCPCS: 36415; 71045-TC; 74176-TC; 80053; 80307; 81003; 81015; 82378; 83690; 85025; 85610; 86301; 86304; 87086; 93005; 93010; 94010; 99285-25; J1644

== ENCOUNTER 2021-07-19 18:55 | Emergency (ER) | payer OTHER ==
[2021-07-19 19:16] VITALS: BP 158/70; PULSE 100; TEMP 98.1; BMI 27.3
[2021-07-19] MEDS ORDERED: LORazepam 2 MG TABLET PO ONE (19:52)
[2021-07-19] MEDS ORDERED: LORazepam 1 MG TABLET ONE (20:06)
[2021-07-19 21:11] LABS: BASO % 0.4 % (0-2.0); EOS % 1.3 % (0-4.5); HEMATOCRIT 35.1 % (32.4-45.2); LYMPH % 19.6 % (8-40); MCH 32.2 pg (25.7-33.7); MCHC 34.1 g/dl (32.0-36.0); MEAN CELL VOLUME 94.6 fl (80-96); MEAN PLT VOLUME 6.4 fl (7.5-11.1); MONO % 5.5 % (3.8-10.2); NEUT % 73.2 % (42.8-82.8); PLATELET COUNT 409 10^3/uL (134-434); RBC 3.71 M/mm3 (3.60-5.2); RDW 13.7 % (11.6-15.6); WHITE BLOOD COUNT 8.5 K/mm3 (4.0-10.0)
[2021-07-19 21:41] LABS: ALBUMIN 3.8 g/dl (3.4-5.0); BLOOD UREA NITROGEN 15.6 mg/dL (7-18); CALCIUM 9.1 mg/dL (8.5-10.1)
[2021-07-19 21:44] LABS: CREATININE 1.4 mg/dL (0.55-1.3)
[2021-07-19 21:46] LABS: BILIRUBIN,TOTAL 0.3 mg/dL (0.2-1); TOT PROT 7.8 g/dl (6.4-8.2)
== END 2021-07-19 23:30 | disposition left against medical advice (07) ==
LOC: JER 18:55
DX: R25.8 Other abnormal involuntary movements (principal)
CPT/HCPCS: 36415; 80053; 85025; 93005; 93010; 99284-25

== ENCOUNTER 2022-02-21 10:31 | Emergency (ER) | payer OTHER ==
[2022-02-21 10:34] VITALS: BP 125/80; PULSE 80; RESP 18; TEMP 98.2; BMI 23.5
[2022-02-21] MEDS ORDERED: DEXAMETHASONE LIQUID 0.5 MG/5 ML PO ONE (11:11)
[2022-02-21] MEDS ORDERED: DEXAMETHASONE SOD PHOSPHATE 10 MG/1 ML VIAL ONE (11:18)
== END 2022-02-21 11:22 | disposition home or self-care (01) ==
LOC: JERFT 10:31
DX: R21 Rash and other nonspecific skin eruption (principal)
CPT/HCPCS: 99283-25

== ENCOUNTER 2022-04-19 13:07 | Emergency (ER) | payer OTHER ==
[2022-04-19 13:51] VITALS: BP 148/84; PULSE 80; RESP 20; TEMP 98.4; BMI 24.3
[2022-04-19] MEDS ORDERED: SODIUM CHLORIDE 1,000 ML IV STA (14:59)
[2022-04-19] MEDS ORDERED: ACETAMINOPHEN 1000 MG/100 ML BAG IVPB ONE (14:59)
[2022-04-19] MEDS ORDERED: ONDANSETRON 4 MG/2 ML VIAL IVPUSH ONE (14:59)
[2022-04-19] MEDS ORDERED: ACETAMINOPHEN INJECTION 100 ML IVPB ONE (15:07)
[2022-04-19] MEDS ORDERED: ONDANSETRON 4 MG/2 ML VIAL ONE (15:08)
[2022-04-19 15:49] LABS: BASO % 0.8 % (0-2.0); EOS % 0.3 % (0-4.5); HEMATOCRIT 37.8 % (32.4-45.2); LYMPH % 12.7 % (8-40); MCH 32.9 pg (25.7-33.7); MCHC 34.3 g/dl (32.0-36.0); MEAN CELL VOLUME 95.9 fl (80-96); MEAN PLT VOLUME 6.8 fl (7.5-11.1); MONO % 4.4 % (3.8-10.2); NEUT % 81.8 % (42.8-82.8); PLATELET COUNT 380 10^3/uL (134-434); RBC 3.95 M/mm3 (3.60-5.2); RDW 13.2 % (11.6-15.6); WHITE BLOOD COUNT 7.7 K/mm3 (4.0-10.0)
[2022-04-19 16:19] LABS: ALBUMIN 3.8 g/dl (3.4-5.0); BLOOD UREA NITROGEN 17.6 mg/dL (7-18); CALCIUM 9.7 mg/dL (8.5-10.1)
[2022-04-19 16:22] LABS: CREATININE 1.2 mg/dL (0.55-1.3)
[2022-04-19 16:24] LABS: BILIRUBIN,TOTAL 0.4 mg/dL (0.2-1); TOT PROT 8.1 g/dl (6.4-8.2)
[2022-04-19] MEDS ORDERED: methylPREDNISolone NA SUCC 125 MG/2 ML VIAL IVPUSH ONE (17:11)
[2022-04-19] MEDS ORDERED: ALBUTEROL SO4 2.5/IPRATROPIUM 0.5 INH SOL 3 ML VIAL.NEB. NEB ONE ×2 (17:11→17:31)
[2022-04-19] MEDS ORDERED: methylPREDNISolone NA SUCC 125 MG/2 ML VIAL ONE (17:32)
== END 2022-04-19 18:59 | disposition home or self-care (01) ==
LOC: JER 13:07
PROC: 3E0333Z Introduction of Anti-inflammatory into Peripheral Vein, Percutaneous Approach (ICD-10-PCS; principal; 2022-04-19)
PROC: 3E033GC Introduction of Other Therapeutic Substance into Peripheral Vein, Percutaneous Approach (ICD-10-PCS; 2022-04-19)
PROC: 3E033GC Introduction of Other Therapeutic Substance into Peripheral Vein, Percutaneous Approach (ICD-10-PCS; 2022-04-19)
PROC: 3E0337Z Introduction of Electrolytic and Water Balance Substance into Peripheral Vein, Percutaneous Approach (ICD-10-PCS; 2022-04-19)
PROC: 3E0F7GC Introduction of Other Therapeutic Substance into Respiratory Tract, Via Natural or Artificial Opening (ICD-10-PCS; 2022-04-19)
DX: R05.1 Acute cough (principal); R51.9 Headache, unspecified; R11.2 Nausea with vomiting, unspecified
CPT/HCPCS: 0241U-QW; 36415; 71045-TC-FY; 80053; 85025; 94640; 96361; 96374; 96375; 99284-25

== ENCOUNTER 2022-11-26 08:45 | Emergency (ER) | payer OTHER ==
[2022-11-26 08:52] VITALS: BP 160/73; PULSE 70; RESP 18; TEMP 98.1; BMI 23.5
== END 2022-11-26 10:06 | disposition home or self-care (01) ==
LOC: JERFT 08:45
DX: Z76.0 Encounter for issue of repeat prescription (principal)
CPT/HCPCS: 99281-25

== ENCOUNTER 2023-02-24 00:46 | Inpatient (IN) | payer OTHER ==
[2023-02-24 01:01] VITALS: BMI 21.9
[2023-02-24] MEDS ORDERED: ACETAMINOPHEN 1000 MG/100 ML BAG IVPB ONE (01:25)
[2023-02-24] MEDS ORDERED: ACETAMINOPHEN INJECTION 100 ML IVPB ONE (01:39)
[2023-02-24 01:56] LABS: EOS % 2.2 % (0-4.5); HEMATOCRIT 40.7 % (32.4-45.2); LYMPH % 30.1 % (8-40); MCH 31.6 pg (25.7-33.7); MCHC 34.4 g/dl (32.0-36.0); MEAN CELL VOLUME 91.8 fl (80-96); MEAN PLT VOLUME 7.1 fl (7.5-11.1); MONO % 6.7 % (3.8-10.2); PLATELET COUNT 278 10^3/uL (134-434); RBC 4.44 M/mm3 (3.60-5.2); RDW 13.8 % (11.6-15.6); WHITE BLOOD COUNT 4.7 K/mm3 (4.0-10.0)
[2023-02-24 02:40] LABS: CHLORIDE 104 mmol/L (98-107); SODIUM 137 mmol/L (136-145)
[2023-02-24 02:42] LABS: CALCIUM 8.8 mg/dL (8.5-10.1)
[2023-02-24 02:43] LABS: ALBUMIN 3.6 g/dl (3.4-5.0); BLOOD UREA NITROGEN 17.8 mg/dL (7-18); CO2 27 mmol/L (21-32); GLUCOSE,RANDOM 109 mg/dL (74-106)
[2023-02-24 02:44] LABS: URINE APPEARANCE CLEAR; URINE BILIRUBIN NEGATIVE (NEGATIVE); URINE COLOR YELLOW; URINE GLUCOSE (UA) NEGATIVE (NEGATIVE); URINE KETONE NEGATIVE (NEGATIVE); URINE LEUK ESTERASE NEGATIVE (NEGATIVE); URINE NITRITE NEGATIVE (NEGATIVE); URINE PROTEIN NEGATIVE (NEGATIVE); URINE UROBILINOGEN 0.2 mg/dL (0.2-1.0)
[2023-02-24 02:46] LABS: CREATININE 1.2 mg/dL (0.55-1.3)
[2023-02-24 02:47] LABS: BILIRUBIN,TOTAL 0.2 mg/dL (0.2-1)
[2023-02-24 02:48] LABS: TOT PROT 8.4 g/dl (6.4-8.2)
[2023-02-24 02:49] LABS: ALK PHOS 114 U/L (45-117)
[2023-02-24 02:51] LABS: N-TERMINAL BNP 1716.6 pg/ml (5-125)
[2023-02-24] MEDS ORDERED: ALBUTEROL SO4 2.5/IPRATROPIUM 0.5 INH SOL 3 ML VIAL.NEB. NEB ONE ×2 (02:57→03:02)
[2023-02-24] MEDS ORDERED: FAMOTIDINE 20 MG/50 ML IVPB 20 MG/50 ML MG IVPB ONE ×2 (03:49→03:57)
[2023-02-24] MEDS ORDERED: METOCLOPRAMIDE HCL INJECTION 10 MG/2 ML VIAL IVPUSH ONE (03:49)
[2023-02-24 03:53] LABS: POTASSIUM 4.1 mmol/L (3.5-5.1)
[2023-02-24 03:55] LABS: CALCIUM 8.6 mg/dL (8.5-10.1)
[2023-02-24 03:56] LABS: ALBUMIN 3.6 g/dl (3.4-5.0); BLOOD UREA NITROGEN 17.3 mg/dL (7-18)
[2023-02-24] MEDS ORDERED: METOCLOPRAMIDE HCL INJECTION 10 MG/2 ML VIAL ONE (03:56)
[2023-02-24] MEDS ORDERED: hydrOXYzine HCL 100 MG/2 ML VIAL IM ONE (03:56)
[2023-02-24] MEDS ORDERED: hydrOXYzine PAMOATE 50 MG CAPSULE (FP) ONE (03:56)
[2023-02-24 03:59] LABS: CREATININE 1.1 mg/dL (0.55-1.3)
[2023-02-24 04:00] LABS: TOT PROT 7.3 g/dl (6.4-8.2)
[2023-02-24 04:01] LABS: BILIRUBIN,TOTAL 0.4 mg/dL (0.2-1)
[2023-02-24] MEDS ORDERED: hydrOXYzine HCL 50 MG/ML VIAL IM ONE (04:09)
[2023-02-24] MEDS ORDERED: ACETAMINOPHEN 325 MG TABLET (FP) PO PRN (06:13)
[2023-02-24 06:18] LABS: ANION GAP 6 MMOL/L (8-16); POTASSIUM 7.8 mmol/L (3.5-5.1); SGOT/AST 109 U/L (15-37); SGPT/ALT 74 U/L (13-61)
[2023-02-24] MEDS ORDERED: amLODIPine BESYLATE 10 MG TABLET (FP) PO ONE (09:45)
[2023-02-24] MEDS: LOSARTAN POTASSIUM 50 MG TABLET PO SCH (15:15)
[2023-02-24] MEDS: HYDROCHLOROTHIAZIDE 25 MG TABLET (FP) PO SCH (15:15)
[2023-02-24] MEDS: PANTOPRAZOLE 40 MG TABLET PO SCH (16:28)
[2023-02-24] MEDS ORDERED: ATORVASTATIN CA 20 MG TABLET (FP) PO SCH (22:00)
[2023-02-25] MEDS ORDERED: methaDONE HCL 10 MG TABLET PO SCH (06:00)
[2023-02-25 08:36] LABS: BASO % 0.9 % (0-2.0); EOS % 2.7 % (0-4.5); HEMATOCRIT 34.3 % (32.4-45.2); HEMOGLOBIN 11.6 GM/dL (10.7-15.3); LYMPH % 38.1 % (8-40); MCH 31.7 pg (25.7-33.7); MCHC 33.9 g/dl (32.0-36.0); MEAN CELL VOLUME 93.5 fl (80-96); MEAN PLT VOLUME 6.9 fl (7.5-11.1); MONO % 7.8 % (3.8-10.2); NEUT % 50.5 % (42.8-82.8); PLATELET COUNT 257 10^3/uL (134-434); RBC 3.67 M/mm3 (3.60-5.2); RDW 13.4 % (11.6-15.6); WHITE BLOOD COUNT 5.5 K/mm3 (4.0-10.0)
[2023-02-25 08:54] LABS: POTASSIUM 4.1 mmol/L (3.5-5.1)
[2023-02-25 09:01] LABS: ALBUMIN 3.7 g/dl (3.4-5.0); BLOOD UREA NITROGEN 19.5 mg/dL (7-18); CALCIUM 8.4 mg/dL (8.5-10.1)
[2023-02-25 09:02] LABS: PHOSPHOROUS 3.7 mg/dL (2.5-4.9)
[2023-02-25 09:04] LABS: BILIRUBIN,TOTAL 0.4 mg/dL (0.2-1); CREATININE 1.4 mg/dL (0.55-1.3); TOT PROT 6.9 g/dl (6.4-8.2)
[2023-02-25] MEDS: NIFEdipine E.R. 90 MG TABLET PO SCH (09:26)
[2023-02-25] MEDS: HYDROCHLOROTHIAZIDE 25 MG TABLET (FP) PO SCH (09:26)
[2023-02-25] MEDS: LOSARTAN POTASSIUM 50 MG TABLET PO SCH (09:26)
[2023-02-25] MEDS: PANTOPRAZOLE 40 MG TABLET PO SCH (09:26)
[2023-02-25] MEDS ORDERED: amLODIPine BESYLATE 10 MG TABLET (FP) PO SCH (10:00)
[2023-02-25 16:22] LABS: PHENCYCLIDINE,URINE NEGATIVE (NEGATIVE); URINE AMPHETAMINES NEGATIVE (NEGATIVE); URINE BENZODIAZEPINES NEGATIVE (NEGATIVE)
[2023-02-25 16:23] LABS: OPIATES, URI NEGATIVE (NEGATIVE); URINE BARBITURATES NEGATIVE (NEGATIVE)
[2023-02-25 16:24] LABS: COCAINE, UR NEGATIVE (NEGATIVE); METHADONE, UR POSITIVE (NEGATIVE)
[2023-02-26 00:40] VITALS: RESP 18
[2023-02-26 09:20] LABS: POTASSIUM 3.7 mmol/L (3.5-5.1)
[2023-02-26] MEDS: NIFEdipine E.R. 90 MG TABLET PO SCH (09:29)
[2023-02-26] MEDS: LOSARTAN POTASSIUM 50 MG TABLET PO SCH (09:29)
[2023-02-26] MEDS: HYDROCHLOROTHIAZIDE 25 MG TABLET (FP) PO SCH (09:29)
[2023-02-26] MEDS: PANTOPRAZOLE 40 MG TABLET PO SCH (09:30)
[2023-02-26 09:32] LABS: CALCIUM 8.2 mg/dL (8.5-10.1)
[2023-02-26 09:33] LABS: ALBUMIN 3.6 g/dl (3.4-5.0); BLOOD UREA NITROGEN 23.2 mg/dL (7-18)
[2023-02-26 09:36] LABS: CREATININE 1.2 mg/dL (0.55-1.3)
[2023-02-26 09:37] LABS: BILIRUBIN,TOTAL 0.6 mg/dL (0.2-1); TOT PROT 6.7 g/dl (6.4-8.2)
[2023-02-26 15:25] VITALS: BP 134/73; PULSE 67; TEMP 98
== END 2023-02-26 18:17 | disposition home or self-care (01) | DRG 199 ==
LOC: JER 00:46 → JERBED 04:55 → OBSVTOIN 06:12 → J4W 08:26
PROVIDERS: ADMIT Internal Medicine; ATTEND Internal Medicine
DX: I16.0 Hypertensive urgency (principal); F11.20 Opioid dependence, uncomplicated; K44.9 Diaphragmatic hernia without obstruction or gangrene; K21.9 Gastro-esophageal reflux disease without esophagitis; I10 Essential (primary) hypertension; R94.5 Abnormal results of liver function studies; N20.0 Calculus of kidney; K57.90 Diverticulosis of intestine, part unspecified, without perforation or abscess without bleeding; F41.8 Other specified anxiety disorders; K80.20 Calculus of gallbladder without cholecystitis without obstruction; R00.2 Palpitations; R56.9 Unspecified convulsions; R94.31 Abnormal electrocardiogram [ECG] [EKG]; I35.1 Nonrheumatic aortic (valve) insufficiency; G93.0 Cerebral cysts; Z99.81 Dependence on supplemental oxygen
CPT/HCPCS: 0241U-QW; 36415; 70450-TC; 71045-TC-FY; 74176-TC; 76705-TC; 80053; 80061; 80307; 81003; 82550; 82553; 83036; 83690; 83735; 83880; 84100; 84439; 84443; 84484; 85025; 87086; 93005; 93010; 93306-TC; 93880-TC; 97116-GP; 97162-GP; 99285-25; G0378

== ENCOUNTER 2023-10-18 16:27 | Emergency (ER) | payer OTHER ==
[2023-10-18 16:35] VITALS: BP 158/57; PULSE 82; RESP 18; TEMP 98.2; BMI 26.3
[2023-10-18] MEDS ORDERED: IBUPROFEN 400 MG TABLET (FP) PO ONE (17:50)
[2023-10-18] MEDS: IBUPROFEN 400 MG TABLET (FP) PO ONE (18:00)
[2023-10-18 18:08] LABS: PH,URINE 7.5 (5.0-8.0); URINE APPEARANCE CLEAR; URINE BILIRUBIN NEGATIVE (NEGATIVE); URINE COLOR YELLOW; URINE GLUCOSE (UA) NEGATIVE (NEGATIVE); URINE KETONE NEGATIVE (NEGATIVE); URINE LEUK ESTERASE NEGATIVE (NEGATIVE); URINE NITRITE NEGATIVE (NEGATIVE); URINE PROTEIN NEGATIVE (NEGATIVE); URINE UROBILINOGEN 0.2 mg/dL (0.2-1.0)
== END 2023-10-18 18:42 | disposition home or self-care (01) ==
LOC: JER 16:27
DX: R35.0 Frequency of micturition (principal); R10.30 Lower abdominal pain, unspecified; R68.83 Chills (without fever)
CPT/HCPCS: 81003; 87086; 99283-25